=== PATIENT | male | born 1980 | race Caucasian/White ===

== ENCOUNTER 2024-01-20 08:56 | Emergency (ER) | payer OTHER, SELFPAY ==
[2024-01-20 09:06] VITALS: BP 155/97; PULSE 102; RESP 16; TEMP 36.4; O2SAT 100
--- NOTE | 2024-01-20 09:16 | ED.SKABFB ---
HPI - Skin/Abscess/Foreign Bdy General Chief complaint: Skin/Abscess/Foreign Body Stated complaint: poison plant rash Time Seen by Provider: 01/20/24 09:17 Source: patient and RN notes reviewed Mode of arrival: ambulatory Limitations: no limitations History of Present Illness HPI narrative: 43-year-old male presents with concern of for generalized itchy rash. Reports the rash started after he was clearing brush last week. Reports he did a telehealth visit and was prescribed a Medrol Dosepak. Reports he finished a yesterday and has had no relief of his rash. Reports he has used some [id number] poison carey treatment without relief. Reports he has taken Benadryl without relief. Denies swollen lips, swollen tongue, trouble breathing. MD complaint: rash Related Data Allergies Allergy/AdvReac Type Severity Reaction Status Date / Time No Known Allergies Allergy Mild Verified 01/20/24 09:01 Review of Systems Review of Systems: CONSTITUTIONAL: Denies malaise, chills, sweats, or fever. EYES: Denies redness, or discharge. ENT: Denies rhinorrhea, congestion, swollen lips, swollen tongue CARDIOVASCULAR: Denies chest pain, palpitations, or edema. RESPIRATORY: Denies cough or dyspnea. GASTROINTESTINAL: Denies abdominal pain, nausea, vomiting SKIN: Reports generalized itchy rash MUSCULOSKELETAL: Denies joint pain or myalgia. NEUROLOGIC: Denies headache. All systems reviewed & are unremarkable except as noted in HPI and below PMFSH Comments At time of signature, agree with nursing past medical, surgical, social and family history. There is no relevant family history pertinent to the presenting complaint Exam Narrative: GENERAL: Well-appearing, well-nourished, and in no acute distress. HEAD: Normocephalic, atraumatic. EYES: PERRLA, conjunctivae clear, and EOMI. ENT: Mucous membranes moist. Oropharynx without edema, erythema or lesions. NECK: Supple. No lymphadenopathy CHEST: Clear to auscultation. No respiratory distress. HEART: Regular rate and rhythm. SKIN: Warm, dry. Slightly raised patches of erythema, some scattered papules noted to generalized bilateral upper and lower extremities, torso NEURO: Alert and oriented x3. PSYCH: Normal mood and affect Course Course Emergency Course: Patient is aware of diagnosis, understands and agrees to treatment plan. Anticipatory guidance given. Patient agrees to follow-up as directed and is aware of reasons to seek care at the emergency department. Portions of this record may have been created with voice recognition software Level of Care: Express Care Visit Vital Signs Vital signs: Vital Signs Temperature 97.6 F 01/20/24 09:06 Pulse Rate 102 H 01/20/24 09:06 Respiratory Rate 16 01/20/24 09:06 Blood Pressure 155/97 H 01/20/24 09:06 Pulse Oximetry 100 01/20/24 09:06 Oxygen Delivery Room Air 01/20/24 09:06 Temperature 97.6 F 01/20/24 09:06 Pulse Rate 102 H 01/20/24 09:06 Respiratory Rate 16 01/20/24 09:06 Blood Pressure 155/97 H 01/20/24 09:06 Pulse Oximetry 100 01/20/24 09:06 Oxygen Delivery Room Air 01/20/24 09:06 Reviewed. MDM - Skin/Abscess/Foreign Bdy MDM Narrative Medical decision making narrative: Does not appear at this time to be erythema multiforme, bullous, SJS, TEN; no evidence at this time to suggest RMSF, endocarditis or Lyme disease; patient looks well, nontoxic and is tolerating oral intake; no neurologic signs or symptoms; no headache, photophobia or neck pain; afebrile; appropriate for initial outpatient treatment; discussed the importance of follow-up, patient agrees; question, viral exanthema, contact dermatitis, allergic dermatitis, eczema, urticaria, [ xx ]. No soft palate or uvula edema, no tongue, lip edema or other mucosal involvement, no respiratory compromise, no stridor, no wheezing, no wheezing, no history of syncope, no hypotension, no nausea, vomiting, or diarrhea. Instructed patient to go to nearest
[2024-01-20] MEDS: methylPREDNISolone SOD SUCC 125 MG VIAL IM (09:29)
== END 2024-01-20 09:35 | disposition home or self-care (01) ==
PROVIDERS: Emergency Provider Nurse Practitioner; Referring Provider Emergency Medicine
DX: L25.9 Unspecified contact dermatitis, unspecified cause (principal)
CPT/HCPCS: 96372; 99203; G0463; J2919

== ENCOUNTER 2024-04-08 12:05 | Emergency (ER) | payer OTHER, SELFPAY ==
--- NOTE | ~2024-04-08 | XR_ITS ---
EXAMINATION: XR chest 2V DATE: 04/08/2024 12:30 INDICATION: Chronic cough. TECHNIQUE: Frontal and lateral views of the chest were obtained. COMPARISON: None. FINDINGS: There is no pneumonia, pleural effusion, or pneumothorax. The heart size is normal. IMPRESSION: 1. No acute cardiopulmonary disease. Reviewed, dictated and finalized at location A. [facility] [employer]
--- NOTE | 2024-04-08 12:08 | ED.URI ---
HPI - URI/Sore Throat General Chief Complaint: Upper Respiratory Infection Stated Complaint: cough Time Seen by Provider: 04/08/24 12:28 Source: patient and RN notes reviewed Mode of arrival: ambulatory Limitations: no limitations History of Present Illness HPI Narrative: 43-year-old male presents with concern for chronic cough. Reports cough is worse when is lying down. He reports he has had a cough for 5 months. He denies any shortness of breath or wheezing. Denies any history of problems with his lungs. He denies any history of heart problems. Denies any bilateral lower extremity edema. He denies heartburn. He is not a smoker or a vapor. MD elicited complaint: cough Related Data Home Medications Medication Instructions Recorded Confirmed No Home Medications 04/08/24 04/08/24 Allergies Allergy/AdvReac Type Severity Reaction Status Date / Time No Known Allergies Allergy Mild Verified 04/08/24 12:08 Review of Systems Review of Systems: CONSTITUTIONAL: Denies malaise, chills, sweats, or fever. EYES: Denies visual changes, redness, or discharge. ENT: Denies rhinorrhea, congestion, sinus pain, otalgia and sore throat. CARDIOVASCULAR: Denies chest pain, palpitations, or edema. RESPIRATORY: Reports chronic cough. Denies dyspnea. GASTROINTESTINAL: Denies abdominal pain, nausea, vomiting, diarrhea SKIN: Denies rash or itching. MUSCULOSKELETAL: Denies myalgia. NEUROLOGIC: Denies headache. All systems reviewed & are unremarkable except as noted in HPI and below PMFSH Comments At time of signature, agree with nursing past medical, surgical, social and family history. There is no relevant family history pertinent to the presenting complaint Exam Narrative: GENERAL: Well-appearing, well-nourished, and in no acute distress. HEAD: Normocephalic EYES: PERRLA, conjunctivae clear ENT: Nares clear, no discharge. Mucous membranes moist. TM pearly hoff with sharp light reflex bilaterally; no tragal tenderness. Oropharynx not erythematous without lesions. Tonsils not enlarged and without exudate, no drooling, no hoarseness, no trismus, uvula midline. NECK: Supple. No lymphadenopathy CHEST: Clear to auscultation, breath sounds equal. No wheezing, rhonchi, rales, or stridor. No respiratory distress, speaks in full sentences. HEART: Regular rate and rhythm. No murmur heard. SKIN: Warm, dry, no rash. NEURO: Alert and oriented x3. PSYCH: Normal mood and affect Course Course Emergency Course: Patient is aware of diagnosis, understands and agrees to treatment plan. Anticipatory guidance given. Patient agrees to follow-up as directed and is aware of reasons to seek care at the emergency department. Portions of this record may have been created with voice recognition software Level of Care: Express Care Visit Vital Signs Vital signs: Reviewed. MDM - URI/Sore Throat MDM Narrative Medical decision making narrative: Differential diagnosis considered: Freitas virus, strep pharyngitis, allergic rhinitis, upper respiratory tract infection, sinusitis, rhinosinusitis, nasopharyngitis. viral pharyngitis, otitis media, otitis externa, pneumonia, bronchitis, viral cough syndrome, viral syndrome, and influenza. Exam findings show no acute concerns or changes; patient is non-toxic appearing and is in no distress. Patient is appropriate for outpatient treatment and follow-up. Lab Data Attestation: I reviewed the patient's lab results. Critical Care Time Critical Care Time Critical Care Time: No Discharge Plan Discharge Clinical Impression: Chronic cough Patient Disposition: Home, Self-Care Condition: Stable Instructions: Chronic Cough (ED) Additional Instructions: Your chest x-ray looks normal. Please follow-up with your primary care doctor for further evaluation. You may consider taking Nexium [id number] daily for 2 weeks to see if this may help your chronic cough. If you have any urgent concerns such as shortness of breath or chest pain please go to the emergency room Prescriptions: No Action No Home Medications Follow-up/Referrals: UNKNOWN,DOCTOR [Non-Staff] - Time of Disposition: 12:40
[2024-04-08 12:13] VITALS: BP 160/101; PULSE 97; RESP 18; TEMP 37.1; O2SAT 98
== END 2024-04-08 12:43 | disposition home or self-care (01) ==
PROVIDERS: Emergency Provider Nurse Practitioner
DX: R05.3 Chronic cough (principal); Z86.16 Personal history of COVID-19
CPT/HCPCS: 71046; 99213; G0463

== ENCOUNTER 2024-09-30 08:18 | Emergency (ER) | payer OTHER, SELFPAY ==
--- OUTSIDE RECORDS SUMMARY | 2024-09-30 08:21 | XMS_ITS | Clinical Summary ---
Author Organization [facility] Address [address] [place] [address] Care Team Providers Care Service Plumber Name Role Phone Unavailable Primary Care Provider Unavailabl e Social History Tobacco Use Types Packs/Day Years Used Date Smoking Tobacco: Never Assessed Sex and Gender Information Value Date Recorded Sex Assigned at Not on file Legal Sex Male 7:04 PM CDT Gender Identity Not on file Sexual Orientation Not on file Plan of Treatment Health Maintenance Due Date Last Done Comments Colorectal Cancer Screening Colonoscopy (10 Years) 1978 Annual Physical 1981 Hepatitis C 1996 DTaP, Tdap and Td Vaccines ( 1 - Tdap) 1997 Hepatitis B Vaccines (1 of 3 - 19+ 3-dose series) 1997 COVID-19 Vaccine (2023-2 5 season) 2024 HPV Vaccines Aged Out No longer eligi ble based on patient's age to complete this topic Meningococcal B Vaccine Aged Out No l onger eligible based on patient's age to complete this topic Meningococcal Vaccine Aged Out No renetta evelin eligible based on patient's age to complete this topic Pneumococcal Vaccine: Pediat rics (0 to 5 Years) and At-Risk Patients (6 to 49 Years) Aged Out No longer eligible b ased on patient's age to complete this topic RSV Immunizations Under 20 Months Aged Out No longer eligible based on patient's age to complete this topic
--- OUTSIDE RECORDS SUMMARY | 2024-09-30 08:22 | XMS_ITS | Data Portability ---
Author Organization [place] [facility] [employer], Main Office Address [address] [place] [address] Assessment No assessment recorded. Plan of Treatment Reminders Order Date Submit Date Provider Last Modified By Organization Details Last Modified Time Details Appointments Physical/ Annual Wellness 30 2024 09:30A Steve Troy NP Not available Not available Not available Lab vitamin D, 25-hydrox y, total, serum 2023 024 [email or web address] [facility], [address], [place], [address], 05/10/2024 08:15:22 lipid panel, serum 2023 024 [email or web address] [facility], [address], [place], [address], 05/16/2024 08:19:19 CBC w/ auto diff 2023 024 [facility], [address], [place], [address], 05/10/2024 08:15:22 BMP, serum or plasma 2023 024 [email or web address] [facility], [address], [place], [address], 05/16/2024 08:19:19 TSH, serum or plasma 2023 024 [email or web address] [facility], [address], [place], [address], 05/10/2024 08:15:22 testoster one, free + total, serum 2023 024 [email or web address] [facility], [address], [address], [place], [address], 05/10/2024 08:15:22 iron + TIBC + ferritin, serum 2023 024 [email or web address] [id number] [facility], [address], [address], [place], [address], 05/10/2024 08:15:22 vitamin B12 + folate, serum or blood 2023 024 [email or web address] [facility], [address], [address], [place], [address], 05/10/2024 08:15:23 vitamin D, 25-hydrox y, total, serum 2022 023 CARROLL Not available 05/09/2023 09:28:25 lipid panel, serum 2022 023 CARROLL Not available 05/09/2023 09:28:21 CBC w/ auto diff 2022 023 CARROLL Not available 05/09/2023 09:28:23 BMP, serum or plasma 2022 023 CARROLL Not available 05/09/2023 09:28:22 Referral gastroent erologist referral - Please call patient to schedule an appointme nt. Thank you. 2023 024 [email or web address] Timothy Shaw MD, [address], [place], [address], 06/01/2024 08:52:15 Procedures None recorded. Surgeries None recorded. Imaging None recorded. Medication Orders None recorded. Patient TargetsNo targets recorded. Patient Instructions Encounter Date Encounter Id Patient Instructions Last Modified By Organization Details Last Modified Time 05/03/2024 [id number] gastroesophageal reflux disease (GERD): care instructions [email or web address] Not available 05/04/2024 09:12:44 Reason for Referral Decatizer Referral for Screening for malignant neoplasm of colon Please call patient to schedule an appointment. Thank you. Referring Physician: Deonna Troy, Family Medicine, Encounter Date: 05/03/2024 Results Created Date Observation Date Name Description Value Unit Range Abnormal Flag Note LastModifiedBy Organization Detail LastModifiedTime 04/30/20 22 05/01/2022 VITAM IN D,25- OH,TO JOELLEN,I A vitamin D,25-oh,tota l,ia 29 NG/mL 30-100 low Vitam in D Statu s 25-OH Vitam in D: Defic iency : <20 ng/mL Insuf ficie ncy: 20 - 29 ng/mL Optim al: > or = 30 ng/mL For 25-OH Vitam in D testi ng on patie nts on D2-lancaster pplem entat ion and patie nts for whom quant itati on of D2 and D3 fract ions is requi red, the [facility] Assur eD(TM ) 25-OH VIT D, (D2,D 3), LC/MS /MS is recom azar d: order code 11174 (timothy ents >2yrs ). See Note 1 Note 1 For addit ional infor melissa rob refer to http: //lenard Tran stDia gnost ics.c om/fa q/FAQ 199 (This link is being provi ded for infor marlon brizuela/ car schuster purpo ses only. ) Not Available [facility] [address] [place], [address], 05/01/2022 06:50:01 04/30/20 22 05/01/2022 BASIC METAB OLIC PANEL glucose 82 mg/dL 65-99 normal Fasti ng refer ence inter deepali Not Available [facility] [address] [place], [address], 05/01/2022 06:50:00 04/30/20 22 05/01/2022 BASIC METAB OLIC PANEL urea nitrogen (BUN) 15 mg/dL 7-25 normal Not Available [address] [address] [place], [address], 05/01/2022 06:50:00 04/30/20 22 05/01/2022 BASIC METAB OLIC PANEL creatinine 1.03 mg/dL 0.60-1 .29 normal Not Available [address] [place], [address], 05/01/2022 06:50:00 04/30/20 22 05/01/2022 BASIC METAB OLIC PANEL eGFR 92 mL/mi n/1.7 3m2 > or = 60 normal The eGFR is based on the CKD-E PI 2020 equat ion. To calcu late the new eGFR from a previ ous Creat inine or Cysta tin C resul t, go to https ://leon romano.teresita hoover.o kayla/sharee mcintosh s/ kdoqi /gfr% 5Fcal culat or Not Available [address] [address] [place], [address], 05/01/2022 06:50:00 04/30/20 22 05/01/2022 BASIC METAB OLIC PANEL BUN/creatini ne ratio not applic able (calc ) 6-22 Not Available [address] [place], [address], 05/01/2022 06:50:00 04/30/20 22 05/01/2022 BASIC METAB OLIC PANEL sodium 138 mmol/ L 135-14 6 normal Not Available [address] [address] [place], [address], 05/01/2022 06:50:00 04/30/20 22 05/01/2022 BASIC METAB OLIC PANEL potassium 5.1 mmol/ L 3.5-5. 3 normal Not Available [address] [address] [place], [address], 05/01/2022 06:50:00 04/30/20 22 05/01/2022 BASIC METAB OLIC PANEL chloride 103 mmol/ L 98-110 normal Not Available [address], [address], 05/01/2022 06:50:00 04/30/20 22 05/01/2022 BASIC METAB OLIC PANEL carbon dioxide 30 mmol/ L 20-32 normal Not Available [address], [address], 05/01/2022 06:50:00 04/30/20 22 05/01/2022 BASIC METAB OLIC PANEL calcium 9.8 mg/dL 8.6-10 .3 normal Not Available [address], [address], 05/01/2022 06:50:00 04/30/20 22 05/01/2022 LIPID PANEL , STAND DAVID cholesterol, total 127 mg/dL <200 normal Not Available [address], [address], 05/01/2022 06:50:00 04/30/20 22 05/01/2022 LIPID PANEL , STAND DAVID HDL cholesterol 31 mg/dL > or = 40 low Not Available [address], [address], 05/01/2022 06:50:00 04/30/20 22 05/01/2022 LIPID PANEL , STAND DAVID triglyceride s 115 mg/dL <150 normal Not Available [address], [address], 05/01/2022 06:50:00 04/30/2005/01/2022 LIPID PANEL , STAND DAVID LDL-choleste rol 76 mg/dL _(leola c) normal Refer ence range : <100 Brandon able range <100 mg/dL for prima ry preve ntion ; <70 mg/dL for patie nts with CHD or diabe tic patie nts with > or = 2 CHD risk facto rs. LDL-C is now calcu lated using the Nat n-Hop kins calcu learory n, which is a valid ated novel igoro dayday leyva than the Fried papo equat ion in the estim ation of LDL-C . Nat pringle SS et al. CIERRA. 2013; 310(1 9): 2061- 2068 (http ://ed ucati on.Qu leonardVisicon Technologies. com/f aq/FA Q164) Not Available [facility] [address] [address] [place], [address], 05/01/2022 06:50:00 04/30/20 22 05/01/2022 LIPID PANEL , STAND DAVID chol/HDLC ratio 4.1 (calc ) <5.0 normal Not Available [address] [address] [address], [place], [address], 05/01/2022 06:50:00 04/30/20 22 05/01/2022 LIPID PANEL , STAND DAVID non HDL cholesterol 96 mg/dL _(leola c) <130 normal For patie nts with diabe christina plus 1 major ASCVD risk facto r, treat ing to a non-H DL-C goal of <100 mg/dL (LDL- C of <70 mg/dL ) is lauren gross optio n. Not Available [facility] [address] [address] [place], [address], 05/01/2022 06:50:00 05/08/20 23 05/09/2023 LIPID PANEL , STAND DAVID cholesterol, total 105 mg/dL <200 normal Not Available [facility] [address] [address] [place], [address], 05/09/2023 09:28:21 05/08/20 23 05/09/2023 LIPID PANEL , STAND DAVID HDL cholesterol 32 mg/dL > or = 40 low Not Available [facility] [address] [address] [place], [address], 05/09/2023 09:28:21 05/08/20 23 05/09/2023 LIPID PANEL , STAND DAVID triglyceride s 147 mg/dL <150 normal Not Available [facility] [address] [place] [address], [address], 05/09/2023 09:28:21 05/08/20 23 05/09/2023 LIPID PANEL , STAND DAVID LDL-choleste rol 50 mg/dL _(leola c) normal Refer ence range : <100 Brandon able range <100 mg/dL for prima ry preve ntion ; <70 mg/dL for patie nts with CHD or diabe tic patie nts with > or = 2 CHD risk facto rs. LDL-C is now calcu lated using the Nat n-Hop kins calcu humberto n, which is a valid ated novel metho d provi ding [place] r accur acy than the Fried papo equat ion in the estim ation of LDL-C . Nat pringle SS et al. CIERRA. 2013; 310(1 9): 2061- 2068 (http ://ed ucati on.Qu estVisicon Technologies. Veteran [employer]fts/f aq/FA Q164) Not Available [address] [address] [place], [address], 05/09/2023 09:28:21 05/08/20 23 05/09/2023 LIPID PANEL , STAND DAVID chol/HDLC ratio 3.3 (calc ) <5.0 normal Not Available [facility] [address] [place], [address], 05/09/2023 09:28:21 05/08/20 23 05/09/2023 LIPID PANEL , STAND DAVID non HDL cholesterol 73 mg/dL _(leola c) <130 normal For patie nts with diabe christina plus 1 major ASCVD risk facto r, treat ing to a non-H DL-C goal of <100 mg/dL (LDL- C of <70 mg/dL ) is consi dered a thera peuti c optio n. Not Available [facility] [address] [place], [address], 05/09/2023 09:28:21 05/08/20 23 05/09/2023 BASIC METAB OLIC PANEL glucose 87 mg/dL 65-99 normal Fasti ng refer ence inter deepali Not Available [address] [address] [place], [address], 05/09/2023 09:28:22 05/08/20 23 05/09/2023 BASIC METAB OLIC PANEL urea nitrogen (BUN) 11 mg/dL 7-25 normal Not Available [address], [address], 05/09/2023 09:28:22 05/08/20 23 05/09/2023 BASIC METAB OLIC PANEL creatinine 0.97 mg/dL 0.60-1 .29 normal Not Available [address], [address], 05/09/2023 09:28:22 05/08/20 23 05/09/2023 BASIC METAB OLIC PANEL eGFR 99 mL/mi n/1.7 3m2 > or = 60 normal Not Available [address], [address], 05/09/2023 09:28:22 05/08/20 23 05/09/2023 BASIC METAB OLIC PANEL BUN/creatini ne ratio SEE NOTE: (calc ) 6-22 Not Repor casper: BUN and Creat inine are withi n refer ence range . Not Available [address], [address], 05/09/2023 09:28:22 05/08/20 23 05/09/2023 BASIC METAB OLIC PANEL sodium 138 mmol/ L 135-14 6 normal Not Available [address] [address] [place], [address], 05/09/2023 09:28:22 05/08/20 23 05/09/2023 BASIC METAB OLIC PANEL potassium 4.5 mmol/ L 3.5-5. 3 normal Not Available [address], [address], 05/09/2023 09:28:22 05/08/20 23 05/09/2023 BASIC METAB OLIC PANEL chloride 102 mmol/ L 98-110 normal Not Available [address], [address], 05/09/2023 09:28:22 05/08/20 23 05/09/2023 BASIC METAB OLIC PANEL carbon dioxide 30 mmol/ L 20-32 normal Not Available [address], [address], 05/09/2023 09:28:22 05/08/20 23 05/09/2023 BASIC METAB OLIC PANEL calcium 9.2 mg/dL 8.6-10 .3 normal Not Available [address], [address], 05/09/2023 09:28:22 05/08/20 23 05/09/2023 CBC (INCL UDES DIFF/ PLT) white blood cell count 14.0 thous and/u L 3.8-10 .8 high Not Available [address], [address], 05/09/2023 09:28:23 05/08/20 23 05/09/2023 CBC (INCL UDES DIFF/ PLT) red blood cell count 3.58 eduarda on/uL 4.20-5 .80 low Not Available [address], [address], 05/09/2023 09:28:23 05/08/20 23 05/09/2023 CBC (INCL UDES DIFF/ PLT) hemoglobin 11.7 g/dL 13.2-1 7.1 low Not Available [facility] [address], [address], 05/09/2023 09:28:23 05/08/20 23 05/09/2023 CBC (INCL UDES DIFF/ PLT) hematocrit 35.1 % 38.5-5 0.0 low Not Available [address], [address], 05/09/2023 09:28:23 05/08/20 23 05/09/2023 CBC (INCL UDES DIFF/ PLT) MCV 98.0 fL 80.0-1 00.0 normal Not Available [address], [address], 05/09/2023 09:28:23 05/08/2005/09/2023 CBC (INCL UDES DIFF/ PLT) MCH 32.7 pg 27.0-3 3.0 normal Not Available [address], [address], 05/09/2023 09:28:23 05/08/20 23 05/09/2023 CBC (INCL UDES DIFF/ PLT) MCHC 33.3 g/dL 32.0-3 6.0 normal Not Available [address], [address], 05/09/2023 09:28:23 05/08/20 23 05/09/2023 CBC (INCL UDES DIFF/ PLT) RDW 15.9 % 11.0-1 5.0 high Not Available [address], [address], 05/09/2023 09:28:23 05/08/20 23 05/09/2023 CBC (INCL UDES DIFF/ PLT) platelet count 461 thous and/u L 140-40 0 high Not Available [address], [address], 05/09/2023 09:28:23 05/08/20 23 05/09/2023 CBC (INCL UDES DIFF/ PLT) MPV 9.6 fL 7.5-12 .5 normal Not Available [address], [address], 05/09/2023 09:28:23 05/08/20 23 05/09/2023 DIFFBRIAN BACH absolute neutrophils 76215 cells /uL 1500-7 800 high Not Available [address], [address], 05/09/2023 09:28:24 05/08/20 23 05/09/2023 DIFFE ABRIL AL, MIESHAA L absolute metamyelocyt es 294 cells /uL 0 high Not Available [address], [address], 05/09/2023 09:28:24 05/08/20 23 05/09/2023 DIFFE ABRIL ALMIESHAA L absolute myelocytes 140 cells /uL 0 high Not Available [address], [address], 05/09/2023 09:28:24 05/08/20 23 05/09/2023 DIFFPatrick SAMUELS ALMIESHAA L absolute lymphocytes 1008 cells /uL 850-39 00 normal Not Available [address], [address], 05/09/2023 09:28:24 05/08/20 23 05/09/2023 DIFFPatrick SAMUELS ALMIESHAA L absolute monocytes 294 cells /uL 200-95 0 normal Not Available [address], [address], 05/09/2023 09:28:24 05/08/20 23 05/09/2023 DIFFE ABRIL ALMIESHAA L absolute eosinophils 434 cells /uL 15-500 normal Not Available [address], [address], 05/09/2023 09:28:24 05/08/20 23 05/09/2023 DIFFE RENTI AL, MANUA L absolute basophils 434 cells /uL 0-200 high Not Available [facility] [address], [address], 05/09/2023 09:28:24 05/08/20 23 05/09/2023 DIFFE RENTI AL, MANUA L neutrophils 81.4 % normal Not Available [facility] [address], [address], 05/09/2023 09:28:24 05/08/20 23 05/09/2023 DIFFE RENTI AL, MANUA L metamyelocyt es 2.1 % high Not Available [facility] [address], [address], 05/09/2023 09:28:24 05/08/20 23 05/09/2023 DIFFE RENTI AL, MANUA L myelocytes 1.0 % high Not Available [facility] [address], [address], 05/09/2023 09:28:24 05/08/20 23 05/09/2023 DIFFE RENTI AL, MANUA L lymphocytes 7.2 % normal Not Available [facility] [address], [address], 05/09/2023 09:28:24 05/08/20 23 05/09/2023 DIFFE RENTI AL, MANUA L monocytes 2.1 % normal Not Available [facility] [address], [address], 05/09/2023 09:28:24 05/08/20 23 05/09/2023 DIFFE RENTI AL, MANUA L eosinophils 3.1 % normal Not Available [facility] [address], [address], 05/09/2023 09:28:24 05/08/20 23 05/09/2023 DIFFE RENTI AL, BRIAN L basophils 3.1 % normal Not Available [facility] [address] [address] [place], [address], 05/09/2023 09:28:24 05/08/20 23 05/09/2023 DIFFE RENTI ALBRIAN L note Altho ugh an auto mated CBC was order ed, our instr ument ation detec casper an abnor malit y on your patie nt's speci men requi ring us to perfo rm a brian l revie w. Not Available [facility] [address] [address] [place], [address], 05/09/2023 09:28:24 05/08/2005/09/2023 VITAM IN D,25- OH,TO JOELLEN,I A vitamin D,25-oh,tota l,ia 31 NG/mL 30-100 normal Vitam in D Statu s 25-OH Vitam in D: Defic iency : <20 ng/mL Insuf ficie ncy: 20 - 29 ng/mL Optim al: > or = 30 ng/mL For 25-OH Vitam in D testi ng on patie nts on D2-l[place]aster pplem entat ion and patie nts for whom quant itati on of D2 and D3 fract ions is requi red, the Quest Assur eD(TM ) 25-OH VIT D, (D2,D 3), LC/MS /MS is recom azar d: order code 73379 (timothy ents >2yrs ). See Note 1 Note 1 For addit ional infor melissa rob refer to http: //leanrd pringle.Que stDia gnost ics.c om/fa q/FAQ 199 (This link is being provi ded for infor marlon brizuela/ car spiveyo ses only. ) Not Available [facility] [address] [address] , [place], [address], 05/09/2023 09:28:25 06/30/19 24 07/01/2023 CBC (INCL UDES DIFF/ PLT) white blood cell count 14.2 thous and/u L 3.8-10 .8 high Not Available [facility] [address], [address], 07/01/2023 03:27:25 06/30/19 24 07/01/2023 CBC (INCL UDES DIFF/ PLT) red blood cell count 3.72 eduarda on/uL 4.20-5 .80 low Not Available [facility] [address], [address], 07/01/2023 03:27:25 06/30/19 24 07/01/2023 CBC (INCL UDES DIFF/ PLT) hemoglobin 11.7 g/dL 13.2-1 7.1 low Not Available [facility] [address], [address], 07/01/2023 03:27:25 06/30/19 24 07/01/2023 CBC (INCL UDES DIFF/ PLT) hematocrit 36.3 % 38.5-5 0.0 low Not Available [facility] [address], [address], 07/01/2023 03:27:25 06/30/19 24 07/01/2023 CBC (INCL UDES DIFF/ PLT) MCV 97.6 fL 80.0-1 00.0 normal Not Available [facility] [address], [address], 07/01/2023 03:27:25 06/30/19 24 07/01/2023 CBC (INCL UDES DIFF/ PLT) MCH 31.5 pg 27.0-3 3.0 normal Not Available [facility] [address], [address], 07/01/2023 03:27:25 06/30/19 24 07/01/2023 CBC (INCL UDES DIFF/ PLT) MCHC 32.2 g/dL 32.0-3 6.0 normal Not Available [facility] [address] [place], [address], 07/01/2023 03:27:25 06/30/19 24 07/01/2023 CBC (INCL UDES DIFF/ PLT) RDW 16.6 % 11.0-1 5.0 high Not Available [address], [address], 07/01/2023 03:27:25 06/30/19 24 07/01/2023 CBC (INCL UDES DIFF/ PLT) platelet count 501 thous and/u L 140-40 0 high Not Available [facility] [address], [address], 07/01/2023 03:27:25 06/30/19 24 07/01/2023 CBC (INCL UDES DIFF/ PLT) MPV 9.8 fL 7.5-12 .5 normal Not Available [address], [address], 07/01/2023 03:27:25 06/30/19 24 07/01/2023 CBC (INCL UDES DIFF/ PLT) absolute neutrophils 9940 cells /uL 1500-7 800 high Not Available [facility] [address], [address], 07/01/2023 03:27:25 06/30/19 24 07/01/2023 CBC (INCL UDES DIFF/ PLT) absolute band neutrophils 426 cells /uL 0-750 normal Not Available [facility] [address], [address], 07/01/2023 03:27:25 06/30/19 24 07/01/2023 CBC (INCL UDES DIFF/ PLT) absolute metamyelocyt es 284 cells /uL 0 high Not Available [facility] [address], [address], 07/01/2023 03:27:25 06/30/19 24 07/01/2023 CBC (INCL UDES DIFF/ PLT) absolute myelocytes 284 cells /uL 0 high Not Available [facility] [address], [address], 07/01/2023 03:27:25 06/30/19 24 07/01/2023 CBC (INCL UDES DIFF/ PLT) absolute lymphocytes 1704 cells /uL 850-39 00 normal Not Available [address], [address], 07/01/2023 03:27:25 06/30/19 24 07/01/2023 CBC (INCL UDES DIFF/ PLT) absolute monocytes 568 cells /uL 200-95 0 normal Not Available [facility] [address], [address], 07/01/2023 03:27:25 06/30/19 24 07/01/2023 CBC (INCL UDES DIFF/ PLT) absolute eosinophils 710 cells /uL 15-500 high Not Available [address], [address], 07/01/2023 03:27:25 06/30/19 24 07/01/2023 CBC (INCL UDES DIFF/ PLT) absolute basophils 284 cells /uL 0-200 high Not Available [facility] [address] [address] [place], [address], 07/01/2023 03:27:25 06/30/19 24 07/01/2023 CBC (INCL UDES DIFF/ PLT) neutrophils 70 % normal Not Available [address], [address], 07/01/2023 03:27:25 06/30/19 24 07/01/2023 CBC (INCL UDES DIFF/ PLT) band neutrophils 3 % normal Not Available [facility] [employer] [address] [address] [place], [address], 07/01/2023 03:27:25 06/30/19 24 07/01/2023 CBC (INCL UDES DIFF/ PLT) metamyelocyt es 2 % high Not Available [address], [address], 07/01/2023 03:27:25 06/30/19 24 07/01/2023 CBC (INCL UDES DIFF/ PLT) myelocytes 2 % high Not Available [facility] [address], [address], 07/01/2023 03:27:25 06/30/19 24 07/01/2023 CBC (INCL UDES DIFF/ PLT) lymphocytes 12 % normal Not Available [address], [address], 07/01/2023 03:27:25 06/30/19 24 07/01/2023 CBC (INCL UDES DIFF/ PLT) monocytes 4 % normal Not Available [address], [address], 07/01/2023 03:27:25 06/30/19 24 07/01/2023 CBC (INCL UDES DIFF/ PLT) eosinophils 5 % normal Not Available [address], [address], 07/01/2023 03:27:25 06/30/19 24 07/01/2023 CBC (INCL UDES DIFF/ PLT) basophils 2 % normal Not Available [address], [address], 07/01/2023 03:27:25 06/30/19 24 07/01/2023 CBC (INCL UDES DIFF/ PLT) comment(s) The smear has been manua lane bush wed and the manua mariely samuels al has been repor casper. Not Available [facility] [address], [address], 07/01/2023 03:27:25 Result Notes None recorded. Problems Name Problem SNOMED Code Status Onset Date Resolution Date Notes Provider Name and Address Organization Details Recorded Time Vitamin D deficiency 88304746 Active 2022 Anupama Santos MD [address], [place] [address], [place], [address], Versie Christian Companion [facility] [employer] [facility] 3 10:15:55 Leukocytosis 553640802 Active 2022 Anupama Santos MD [address], [place] [address], [place], [address], Versie Christian Companion [employer] [facility] 3 08:36:40 Fatigue 24762709 Active 2023 FATIMAH Riley [address], [place] [address], [place], [address], Versie Christian Companion [facility] [employer] 4 12:02:18 Chronic cough 73177090 Active 2023 FATIMAH Riley [address] [facility], [place] [address], [place], [address], Versie Christian Companion [employer] 4 12:12:00 Problem Notes None recorded. Procedures Surgical History Date Name Laterality Status Provider Name and Address Organization Details Recorded Time vasectomy completed Not Available [facility] 0 07/24/2022 01:24:12 Imaging Results None recorded. Procedure Notes None recorded. Medical Equipment None Reported. Allergies No known drug allergies Medications Name Sig Start Date Stop Date Status Note LastModified by Organization Details LastModified Time prednisone 10 mg tablet 05/03 completed Not Available Not Available Not Available prednisone 20 mg tablet 05/03 completed Not Available Not Available Not Available methylpredn isolone 4 mg tablets in a dose pack FOLLOW PACKAGE DIRECTION S 05/03 completed Not Available Not Available Not Available Vitals Date Recorded Body mass index (BMI) Body height Oxygen saturation Oxygen saturation in Arterial blood by Pulse oximetry Heart rate Body temperature Body weight Systolic blood pressure Diastolic blood pressure Provider Name and Address Organization Details Last Updated DateTime 2 28.3 kg/m2 182.88 cm 98 % 98 % 80 /min 97.8 [degF] 33714.8 1 g 118 mm[Hg] 78 mm[Hg] Not Available [facility] 3 01:24:44 Date Recorded Body height Body mass index (BMI) Body weight Body temperature Heart rate Oxygen saturation Oxygen saturation in Arterial blood by Pulse oximetry Systolic blood pressure Diastolic blood pressure Provider Name and Address Organization Details Last Updated DateTime 3 182.88 cm 28.8 kg/m2 42148.5 8 g 97.2 [degF] 76 /min 98 % 98 % 136 mm[Hg] 80 mm[Hg] Abdullahi Ramírez RN [facility] 3 10:06:58 Date Recorded Body weight Body temperature Heart rate Oxygen saturation Oxygen saturation in Arterial blood by Pulse oximetry Systolic blood pressure Diastolic blood pressure Provider Name and Address Organization Details Last Updated DateTime 4 908696. 61 g 97.9 [degF] 80 /min 97 % 97 % 184 mm[Hg] 92 mm[Hg] Abdullahi Ramírez RN [facility] 4 11:37:22 Social History Question Answer Notes LastModified by [facility] Details LastModified Time Tobacco Smoking Status Never Smoker Shell Mihir liang [facility] 04/28/2023 09:58:52 What Is Your Level Of Alcohol Consumption? Moderate [id number] Information not available 07/24/2022 What Is Your Level Of Caffeine Consumption? Heavy [id number] Information not available 07/24/2022 What Type Of Diet Are You Following? REGULAR [id number] Information not available 07/24/2022 What Was The Date Of Your Most Recent Tobacco Screening? 04/28/2023 [email or web address] Information not available 04/28/2023 What Is Your Relationship Status? [id number] Information not available 07/24/2022 Sex: Male Functional Status None recorded. Mental Status None recorded. Family History Relationship Description Onset Age of this Age Resolved Age Notes LastModified by Organization Details LastModified Time Maternal Grandfather Essential hypertension [id number] Not available 07/24/2022 01:24:14 Maternal Grandfather Coronary artery bypass graft [id number] Not available 07/24/2022 01:24:14 Brother Malignant neoplasm of lung 38 [id number] Not available 07/24/2022 01:24:14 Father Malignant neoplasm of lung [id number] Not available 07/24/2022 01:24:14 Medical History No medical history recorded. Past Encounters Encounter ID Performer Location Encounter Start Date Encounter Closed Date Diagnosis/Indication Diagnosis SNOMED-CT Code Diagnosis ICD10 Code Diagnosis Note [id number] Anupama Santos MD [facility] Primary Care [facility] [address] [facility] [address] [place] [address] 04/28/2022 00:00:00 05/22/2022 08:04:44 [id number] Anupama Santos MD [facility] Primary Care [facility] [address] [address] [place] [address] 04/28/2023 09:57:26 04/28/2023 10:44:23 Adult health examination 804909384 Z00.00 Z13.220 Z13.1 [facility] colon cancer screen age 43PSA age 43 Vitamin D deficiency [id number] E55.9 [id number] FATIMAH Riley [facility] Primary Care [facility] [address] [facility] [address] [place] [address] 05/03/2024 11:28:06 05/03/2024 13:51:54 Adult health examination 253211005 Z00.00 Z13.220 Z13.1 Discussed medication compliance and routine follow up.Discuss ed healthy diet and routine exercise.Casi rodrigeswed vaccine records and made recommenda tions as needed.Enc ouraged annual eye and dental exams, as well as twice yearly dental cleanings. Will check screening labs as listed below. Vitamin D deficiency [id number] E55.9 Fatigue [id number] R53.83 Will check labs as listed below. Chronic cough [id number] R 05.3 Patient is going to restart Nexium and take it daily and see if symptoms improve as it has been previously suggested that his chronic cough is GERD related.Di scussed avoiding spicy foods, carbs, and caffeine to help with symptoms of GERD. Difficulty sleeping [id number] Z72.820 Patient declines all treatment/ testing options at this time.Patie nt is going to take Benadryl like he did previously , will discontinu e Benadryl when stress and life calm-down to determine if this is stress related. Screening for malignant neoplasm of colon [id number] Z12.11 Will refer to GI as listed below. Health Concerns Section Related Observation LastModified by Organization Detai ls LastModified Time None Recorded Concern Status LastModified by Organization Details LastModified Time None Recorded Advance Directives Directive None Recorded Payers Encounter Date Sequence Insurance Name Policy Number Policy Hurst Covered Member ID Hurst Member ID Guarantor Name 04/28/2023 1 [facility] - [place] - DOS PRIOR TO 2024 (PPO) [id number] Tremayne Rodríguez [id number] PATEL Sunil Rodríguez 05/03/2024 1 [facility] [employer] [facility] - [place] - DOS PRIOR TO 2024 (PPO) [id number] Tremayne Rodríguez [id number] PATEL Sunil Rodríguez Notes Date Note Type Note Provider Name and Address Organization Details Recorded Time 04/28/2023 text/html Here for wellnes s exam, no questions or concerns Anupama Santos MD [address], [facility] [address], [place], [address], [facility] 04/29/2023 09:03:27 05/03/2024 text/html Patient is a 43 year old male that presents to the office for annual physical. Patient does not take any daily medications. Patient reports chronic dry cough since , went to urgent care and was advised to start Nexium due to possibility of acid reflux. Patient reports symptoms did improve while taking the Nexium however he stopped taking it because he doesn't like taking daily medications. Patient reports issues with insomnia, taking Benadryl to help him fall asleep however he stopped taking it so his body did not become dependent on it. Patient is getting about 5-6 hours of continuous sleep per night. Patient falls asleep easy but does not stay asleep, once he wakes up he is up for 3-4 hours. Thinks it could be related to stress due to working on house projects and never ending to-do lists. labs-ordered [id number] within the last 6 years FATIMAH Riley [address], [place], [address], [place] [facility] 05/04/2024 09:13:21
[2024-09-30 08:26] VITALS: BP 156/96; PULSE 80; RESP 17; TEMP 36.6; O2SAT 100
--- NOTE | 2024-09-30 08:27 | ED_ITS ---
HPI - Skin/Abscess/Foreign Bdy General Chief complaint: Skin/Abscess/Foreign Body Stated complaint: poison maria elena Time Seen by Provider: 09/30/24 08:30 Source: patient Mode of arrival: ambulatory Limitations: no limitations History of Present Illness HPI narrative: Neck was is a 44-year-old male patient presenting to the clinic today with complaints of possible poison maria elena to bilateral arms and left leg. He reports he was clearing out some brush on his property and got into some poison maria elena. States the rash is raised itchy. Rash been there for 2 days. Related Data Allergies Allergy/AdvReac Type Severity Reaction Status Date / Time No Known Allergies Allergy Mild Verified 09/30/24 08:30 Review of Systems Review of Systems: Pertinent positives per HPI. Patient denies any fever, chills, headache, visual changes, dizziness, cough, runny nose, sore throat, shortness of breath, chest pain, palpitations, nausea, vomiting, diarrhea, constipation, abdominal pain, or any urinary issues. PMFSH Comments At the time of my signature, I reviewed and agree with the nursing past medical, surgical, social, and family history. There is no relevant family history pertinent to the patient complaint. Exam Narrative: General: Well-developed, well nourished, in no apparent distress Head: Normocephalic, atraumatic. Cardio: Regular rate and rhythm, s1 and s2 normal, no murmur appreciated. Resp: Clear to auscultation bilaterally, no rhonchi, rales, wheezing or rubs. Integumentary: [place], warm, and dry, intact without lesion, red raised itchy blistery rash to bilateral forearms and left lower extremity. Course Course Emergency Course: Portions of this record may have been created with voice recognition software. Level of Care: Express Care Visit Vital Signs Vital signs: Vital Signs Temperature 36.6 C 09/30/24 08:26 Pulse Rate 80 09/30/24 08:26 Respiratory Rate 17 09/30/24 08:26 Blood Pressure 156/96 H 09/30/24 08:26 Pulse Oximetry 100 09/30/24 08:26 Oxygen Delivery Room Air 09/30/24 08:26 Temperature 36.6 C 09/30/24 08:26 Pulse Rate 80 09/30/24 08:26 Respiratory Rate 17 09/30/24 08:26 Blood Pressure 156/96 H 09/30/24 08:26 Pulse Oximetry 100 09/30/24 08:26 Oxygen Delivery Room Air 09/30/24 08:26 Vital signs reviewed MDM - Skin/Abscess/Foreign Bdy MDM Narrative Medical decision making narrative: At the time of visit patient is resting comfortably on the exam table. Patient appears to be nontoxic. Medications: Dexamethasone 10 mg IM given in the clinic today. Plan: I suspect patient has poison maria elena dermatitis. Prescription for prednisone 10 day taper and triamcinolone cream was sent to the pharmacy. Supportive measures were discussed with the patient and they voiced understanding discharge instructions and agrees to treatment plan. Return precautions reviewed Differential Diagnosis Differential diagnosis: Likely abscess of skin or subcutaneous tissue, viral exanthem, dermatophytosis, urticaria, herpes zoster, allergic reaction to drug, cellulitis, eczema, insect bites, impetigo and contact dermatitis Discharge Plan Discharge Clinical Impression: Allergic dermatitis due to poison maria elena Patient Disposition: Home Condition: Stable Instructions: Antibiotic Form, Poison Maria Elena (ED) Additional Instructions: Apply triamcinolone cream as directed Take prednisone as directed-start tomorrow 10/01/24 Avoid hot showers May apply calamine lotion to rash Avoid scratching as this can cause a secondary infection May take Benadryl 25-50mg every 6 hours as needed for itching. Follow up with your PCP in 3-5 days if symptoms persist or sooner if they worsen Go to the Emergency Room if symptoms worsen- fever, rash spreading with treatment, shortness of breath, tongue swelling, drooling, or chest pain Patient Language: Ukrainian Prescriptions: New triamcinolone acetonide 0.1 % cream 1 applic topical BID 7 Days Qty: 30 0RF prednisone 10 mg tablet 10 mg PO DAILY Qty: 30 0RF Rx Instructions: 60mg po daily on day 1, 40mg po daily on days 2-4, 30mg po daily on days 5-6, 20mg po daily on days 7-8, 10mg po daily on days 9-10 Follow-up/Referrals: PHYSICIAN,PUBLIC HEALTH TEACHER [Primary Care Provider] - Time of Disposition: 08:34 Quality NIHSS Nursing Documentation ED NIHSS nursing documentation: reviewed/agree
[2024-09-30] MEDS: dexAMETHasone SOD PHOS INJ 10 MG/ML 1 ML VIAL IM (08:36)
== END 2024-09-30 08:39 | disposition home or self-care (01) ==
PROVIDERS: Emergency Provider Nurse Practitioner Family
DX: L23.7 Allergic contact dermatitis due to plants, except food (principal); Z86.16 Personal history of COVID-19
CPT/HCPCS: 96372; 99213; G0463; J1100

== ENCOUNTER 2024-10-07 08:38 | Emergency (ER) | payer OTHER, SELFPAY ==
--- NOTE | 2024-10-07 08:41 | ED_ITS ---
HPI - Skin/Abscess/Foreign Bdy General Chief complaint: Skin/Abscess/Foreign Body Stated complaint: Skin/Abscess/Foreign Body Time Seen by Provider: 10/07/24 09:05 Source: patient, RN notes reviewed and old records reviewed Mode of arrival: ambulatory Limitations: no limitations History of Present Illness HPI narrative: 44-year-old male presents to the [facility] with a continued poison maria elena rash. Was seen 1 week ago. At that time received a shot of dexamethasone, sent home on 10 days of steroids. Patient strongly believes that what we prescribed him what he was given last time it was not the same thing, discussed with patient that I did reviewed the chart and medication was the same. Discussed adding [id number] products. Related Data Allergies Allergy/AdvReac Type Severity Reaction Status Date / Time No Known Allergies Allergy Mild Verified 10/07/24 08:50 Review of Systems Review of Systems: All systems reviewed & are unremarkable except as noted in HPI and below Constitutional: Constitutional: Reports no additional constitutional complaints ENT: Reports system reviewed and no additional complaints, except as documented Cardiovascular: Cardiovascular: Reports no additional cardiovascular complaints, Denies chest pain and Denies dyspnea Respiratory: Respiratory: Reports no additional respiratory complaints, Denies chest congestion, Denies cough and Denies dyspnea Musculoskeletal: Musculoskeletal: Reports no additional musculoskeletal complaints Integumentary/Breasts: Skin/Breast: Reports as per HPI PMFSH Comments At the time of my signature, I reviewed and agree with the nursing past medical, surgical, social, and family history. There is no relevant family history perti nent to the patient complaint. Exam Const: General: cooperative, healthy appearing, comfortable, no acute distress, well developed, alert and well nourished Nutritional Appearance: well nourished Orientation/consciousness: patient oriented x3 Limitations: no limitations HENMT: Head: normal to inspection Mouth: Yes Normal oral and palatal mucosa present, Yes lip normal, Yes tongue normal and Yes moist mucous membranes Eyes: General: appearance normal, both eyes and all related structures Alignment and Position: alignment normal Neck: Neck: normal visual inspection, full ROM, no lymphadenopathy and no meningeal signs Chest: Chest palpation & inspection: normal inspection of the chest Resp: Effort & Inspection: normal respiratory effort and able to speak in complete sentences Auscultation: clear to auscultation bilaterally, no crackles, no rales, no rhonchi and no wheezes Cardio: Rate: regular rate Skin: General skin exam: normal color and no rashes or lesions noted Rashes: rashes noted Neuro: General: patient oriented x3, gait normal, moves all extremities and no meningeal signs Cognition (Neuro): normal cognition Speech: normal speech Gait exam (Neuro): Normal gait present Extrem: General: normal to inspection, full ROM, capillary refill normal and normal gait Psych: Appearance: grossly normal and well kempt Mental Status: mental status grossly normal Speech and movement: Normal speech and movement present and Clear speech present Affect: normal affect Attitude: cooperative Course Course Level of Care: Express Care Visit Vital Signs Vital signs: Vital Signs Temperature 97.6 F 10/07/24 08:50 Pulse Rate 75 10/07/24 08:50 Respiratory Rate 17 10/07/24 08:50 Blood Pressure 150/93 H 10/07/24 08:50 Pulse Oximetry 98 10/07/24 08:50 Oxygen Delivery Room Air 10/07/24 08:50 Temperature 97.6 F 10/07/24 08:50 Pulse Rate 75 10/07/24 08:50 Respiratory Rate 17 10/07/24 08:50 Blood Pressure 150/93 H 10/07/24 08:50 Pulse Oximetry 98 10/07/24 08:50 Oxygen Delivery Room Air 10/07/24 08:50 Reviewed MDM - Skin/Abscess/Foreign Bdy MDM Narrative Medical decision making narrative: Patient sitting in exam room. Patient is nontoxic, vitals except blood pressure are stable. Blood pressure mildly elevated most likely due to patient being upset that the rash is not gone. No cellulitic changes noted. Patient is just concerned for the continued itching. Discussed hydrocortisone, Zyrtec, Pepcid and Benadryl Reviewed previous chart from December. Discussed with patient the only difference between medication then and medication now was he was not told to take 50 mg for 2 days. Otherwise medications were the same plus he did receive a shot of dexamethasone well in clinic. Discussed [id number]-yahuyad treatments. Discharge instructions reviewed with patient, as well as provided in writing per nursing staff. The instructions also include specific and strict return/GO TO THE ER as well as f/u information. All questions have been answered, and the patient deny any further questions with discharge and discharge plan. Some parts of this dictation were generated by voice recognition software and may contain typographical and/or grammatical inaccuracies. Differential Diagnosis Differential diagnosis: Likely abscess of skin or subcutaneous tissue, urticaria, insect bites and impetigo Critical Care Time Critical Care Time Critical Care Time: No Discharge Plan Discharge Clinical Impression: Allergic dermatitis due to poison maria elena Patient Disposition: Home Condition: Stable Instructions: Antibiotic Form, Poison Maria Elena (ED) Additional Instructions: The most important part of your care is follow up with Primary care provider. Take Benadryl 25-50 mg every 8 hours for itching Take Zyrtec every day x 14 days Take Pepcid 20mg daily for 14 days For the steroids take 20 mg now for 3 days, 10 mg for 3 days then stop Avoid hot showers, Take cool showers. Hot showers will make rashes worse Apply cool compresses every 2-3 hours for 15 minutes Go to the ER for new or worsening symptoms such as shortness of breath. Patient Language: Swiss Prescriptions: New prednisone 10 mg tablet 10 mg PO DAILY Qty: 6 0RF Rx Instructions: adding addition doses. * 20mg x 3 days, 10 mg x 3 days No Action triamcinolone acetonide 0.1 % cream 1 applic topical BID 7 Days Qty: 30 0RF prednisone 10 mg tablet 10 mg PO DAILY Qty: 30 0RF Rx Instructions: 60mg po daily on day 1, 40mg po daily on days 2-4, 30mg po daily on days 5-6, 20mg po daily on days 7-8, 10mg po daily on days 9-10 Follow-up/Referrals: Woodrow,Deonna Heredia [employer]ER [Primary Care Provider] - 3 Days ([facility] follow-up, blood pressure check, 150/93) Stand Alone Forms: Work/School Release IP Time of Disposition: 09:26
--- OUTSIDE RECORDS SUMMARY | 2024-10-07 08:46 | XMS_ITS | Data Portability ---
Author Organization [place] [facility], Main Office Address [address] [place] [address] Assessment No assessment recorded. Plan of Treatment Reminders Order Date Submit Date Provider Last Modified By Organization Details Last Modified Time Details Appointments Physical/ Annual Wellness 30 2024 09:30A Steve Troy NP Not available Not available Not available Lab vitamin D, 25-hydrox y, total, serum 2023 024 [email or web address] [facility], [address], [place], [address], 05/10/2024 08:15:22 lipid panel, serum 2023 024 [email or web address] [facility], [address], [place], [address], 05/16/2024 08:19:19 CBC w/ auto diff 2023 024 [email or web address] [facility], [address], [place], [address], 05/10/2024 08:15:22 BMP, serum or plasma 2023 024 [email or web address] [facility], [address], [place], [address], 05/16/2024 08:19:19 TSH, serum or plasma 2023 024 [email or web address] [facility], [address], [place], [address], 05/10/2024 08:15:22 testoster one, free + total, serum 2023 024 [email or web address] [facility], [address], [address], [place], [address], 05/10/2024 08:15:22 iron + TIBC + ferritin, serum 2023 024 [email or web address] [facility], [address], [address], [place], [address], 05/10/2024 08:15:22 vitamin B12 + folate, serum or blood 2023 024 [id number] [facility], [address], [address], [place], [address], 05/10/2024 08:15:23 vitamin D, 25-hydrox y, total, [...] 2023 024 [email or web address] Timothy Shaw MD, [address], [place], [address], 06/01/2024 08:52:15 Procedures None recorded. Surgeries None recorded. Imaging None recorded. Medication Orders None recorded. Patient TargetsNo targets recorded. 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 See Note 1 Note 1 For addit ional infor melissa rob refer to http: //lenard Tran stDia gnost ics.c om/fa q/FAQ 199 (This link is being provi ded for infor marlon brizuela/ car schuster purpo ses only. ) Not Available [facility] [address] [address] [place], [address], 05/01/2022 06:50:01 04/30/20 22 05/01/2022 BASIC METAB OLIC PANEL glucose 82 mg/dL 65-99 normal Fasti ng refer ence inter deepali Not Available [facility] [address] [place], [address], 05/01/2022 06:50:00 04/30/20 22 05/01/2022 BASIC METAB OLIC PANEL urea nitrogen (BUN) 15 mg/dL 7-25 normal Not Available [address] [address] [place], [address], 05/01/2022 06:50:00 04/30/20 22 05/01/2022 BASIC METAB OLIC PANEL creatinine 1.03 mg/dL 0.60-1 .29 normal Not Available [address] [place], [address], 05/01/2022 06:50:00 04/30/20 22 05/01/2022 BASIC METAB [...] kdoqi /gfr% 5Fcal culat or Not Available [address] [address] [place], [address], 05/01/2022 06:50:00 04/30/20 22 05/01/2022 BASIC METAB OLIC PANEL BUN/creatini ne ratio not applic able (calc ) 6-22 Not Available [address] [place], [address], 05/01/2022 06:50:00 04/30/20 22 05/01/2022 BASIC METAB OLIC PANEL sodium 138 mmol/ L 135-14 6 normal Not Available [address] [address] [place], [address], 05/01/2022 06:50:00 04/30/20 22 05/01/2022 BASIC METAB OLIC PANEL potassium 5.1 mmol/ L 3.5-5. 3 normal Not Available [facility] [address] [address] [place], [address], 05/01/2022 06:50:00 04/30/20 22 05/01/2022 BASIC METAB OLIC PANEL chloride 103 mmol/ L 98-110 normal Not Available [address], [address], 05/01/2022 06:50:00 04/30/20 22 05/01/2022 BASIC METAB OLIC PANEL carbon dioxide 30 mmol/ L 20-32 normal Not Available [address], [address], 05/01/2022 06:50:00 04/30/20 22 05/01/2022 BASIC METAB OLIC PANEL calcium 9.8 mg/dL 8.6-10 .3 normal Not Available [address], [address], 05/01/2022 06:50:00 04/30/20 22 05/01/2022 LIPID PANEL , STAND DAVID cholesterol, total 127 mg/dL <200 normal Not Available [address], [address], 05/01/2022 06:50:00 04/30/20 22 05/01/2022 LIPID PANEL , STAND DAVID HDL cholesterol 31 mg/dL > or = 40 low Not Available [address], [address], 05/01/2022 06:50:00 04/30/20 22 05/01/2022 LIPID PANEL , STAND DAVID triglyceride s 115 mg/dL <150 normal Not Available [address], [address], 05/01/2022 06:50:00 04/30/20 22 05/01/2022 LIPID PANEL , STAND DAVID LDL-choleste rol 76 mg/dL _(leola c) normal Refer ence range : <100 Brandon able range <100 mg/dL for prima ry preve ntion ; <70 mg/dL for patie nts with CHD or diabe tic patie nts with > or = 2 CHD risk facto rs. LDL-C is now calcu lated using the Nat n-Hop kins gurmeetu learory n, which is a valid ated novel nghia leyva than the Fried papo equat ion in the estim ation of LDL-C . Nat pringle SS et al. CIERRA. 2013; 310(1 9): 2061- 2068 (http ://ed ucati on.Qu leonardAgRobotics. com/f aq/FA Q164) Not Available [facility] [address] [address] [place], [address], 05/01/2022 06:50:00 04/30/20 22 05/01/2022 LIPID PANEL , STAND DAVID chol/HDLC ratio 4.1 (calc ) <5.0 normal Not Available [address] [address] [address], [place], [address], 05/01/2022 06:50:00 04/30/20 22 05/01/2022 LIPID PANEL , STAND DAVID non HDL cholesterol 96 mg/dL _(leola c) <130 normal For patie nts with diabe christina plus 1 major ASCVD risk facto r, treat ing to a non-H DL-C goal of <100 mg/dL (LDL- C of <70 mg/dL ) is lauren rousseauo n. Not Available [facility] [address] [address] [place], [address], 05/01/2022 06:50:00 05/08/20 23 05/09/2023 LIPID PANEL , STAND DAVID cholesterol, total 105 mg/dL <200 normal Not Available [facility] [address] [address] [place], [address], 05/09/2023 09:28:21 05/08/20 23 05/09/2023 LIPID PANEL , STAND DAVID HDL cholesterol 32 mg/dL > or = 40 low Not Available [facility] [address] [address] [place], [address], 05/09/2023 09:28:21 05/08/20 23 05/09/2023 LIPID PANEL , STAND DAVID triglyceride s 147 mg/dL <150 normal Not Available [facility] [address] [place] [address], [address], 05/09/2023 09:28:21 05/08/20 23 05/09/2023 LIPID PANEL [...] 9): 2061- 2068 (http ://ed ucati on.Qu leonardAgRobotics. com/f aq/FA Q164) Not Available [facility] [address] [place], [address], 05/09/2023 09:28:21 05/08/20 23 05/09/2023 LIPID PANEL , STAND DAVID chol/HDLC ratio 3.3 (calc ) <5.0 normal Not Available [facility] [address] [place], [address], 05/09/2023 09:28:21 05/08/20 23 05/09/2023 LIPID PANEL , STAND DAVID non HDL cholesterol 73 mg/dL _(leola c) <130 normal For patie nts with diabe christina plus 1 major ASCVD risk facto r, treat ing to a non-H DL-C goal of <100 mg/dL (LDL- C of <70 mg/dL ) is consi dered a thera peuti c optio n. Not Available [facility] [address] [place], [address], 05/09/2023 09:28:21 05/08/20 23 05/09/2023 BASIC METAB OLIC PANEL glucose 87 mg/dL 65-99 normal Fasti ng refer ence inter deepali Not Available [address] [address] [place], [address], 05/09/2023 09:28:22 05/08/20 23 05/09/2023 BASIC METAB OLIC PANEL urea nitrogen (BUN) 11 mg/dL 7-25 normal Not Available [address] [address] [place], [address], 05/09/2023 09:28:22 05/08/2005/09/2023 BASIC METAB OLIC PANEL creatinine 0.97 mg/dL 0.60-1 .29 normal Not Available [address], [address], 05/09/2023 09:28:22 05/08/20 23 05/09/2023 BASIC METAB OLIC PANEL eGFR 99 mL/mi n/1.7 3m2 > or = 60 normal Not Available [address], [address], 05/09/2023 09:28:22 05/08/20 23 05/09/2023 BASIC METAB OLIC PANEL BUN/creatini ne ratio SEE NOTE: (calc ) 6-22 Not Repor casper: BUN and Creat inine are withi n refer ence range . Not Available [address] [address] [place], [address], 05/09/2023 09:28:22 05/08/20 23 05/09/2023 BASIC METAB OLIC PANEL sodium 138 mmol/ L 135-14 6 normal Not Available [address] [address] [place], [address], 05/09/2023 09:28:22 05/08/20 23 05/09/2023 BASIC METAB OLIC PANEL potassium 4.5 mmol/ L 3.5-5. 3 normal Not Available [address], [address], 05/09/2023 09:28:22 05/08/20 23 05/09/2023 BASIC METAB OLIC PANEL chloride 102 mmol/ L 98-110 normal Not Available [address], [address], 05/09/2023 09:28:22 05/08/20 23 05/09/2023 BASIC METAB OLIC PANEL carbon dioxide 30 mmol/ L 20-32 normal Not Available [address], [address], 05/09/2023 09:28:22 05/08/20 23 05/09/2023 BASIC METAB OLIC PANEL calcium 9.2 mg/dL 8.6-10 .3 normal Not Available [address], [address], 05/09/2023 09:28:22 05/08/20 23 05/09/2023 CBC (INCL UDES DIFF/ PLT) white blood cell count 14.0 thous and/u L 3.8-10 .8 high Not Available [address], [address], 05/09/2023 09:28:23 05/08/20 23 05/09/2023 CBC (INCL UDES DIFF/ PLT) red blood cell count 3.58 eduarda on/uL 4.20-5 .80 low Not Available [address], [address], 05/09/2023 09:28:23 05/08/20 23 05/09/2023 CBC (INCL UDES DIFF/ PLT) hemoglobin 11.7 g/dL 13.2-1 7.1 low Not Available [facility] [address], [address], 05/09/2023 09:28:23 05/08/20 23 05/09/2023 CBC (INCL UDES DIFF/ PLT) hematocrit 35.1 % 38.5-5 0.0 low Not Available [address], [address], 05/09/2023 09:28:23 05/08/20 23 05/09/2023 CBC (INCL UDES DIFF/ PLT) MCV 98.0 fL 80.0-1 00.0 normal Not Available [address], [address], 05/09/2023 09:28:23 05/08/2005/09/2023 CBC (INCL UDES DIFF/ PLT) MCH 32.7 pg 27.0-3 3.0 normal Not Available [address], [address], 05/09/2023 09:28:23 05/08/20 23 05/09/2023 CBC (INCL UDES DIFF/ PLT) MCHC 33.3 g/dL 32.0-3 6.0 normal Not Available [address], [address], 05/09/2023 09:28:23 05/08/20 23 05/09/2023 CBC (INCL UDES DIFF/ PLT) RDW 15.9 % 11.0-1 5.0 high Not Available [address], [address], 05/09/2023 09:28:23 05/08/20 23 05/09/2023 CBC (INCL UDES DIFF/ PLT) platelet count 461 thous and/u L 140-40 0 high Not Available [address], [address], 05/09/2023 09:28:23 05/08/20 23 05/09/2023 CBC (INCL UDES DIFF/ PLT) MPV 9.6 fL 7.5-12 .5 normal Not Available [address], [address], 05/09/2023 09:28:23 05/08/20 23 05/09/2023 DIFFE ABRIL ALBRIAN absolute neutrophils 63702 cells /uL 1500-7 800 high Not Available [address], [address], 05/09/2023 09:28:24 05/08/20 23 05/09/2023 DIFFE RENLEONIDES AL, MIESHAA L absolute metamyelocyt es 294 cells /uL 0 high Not Available [address], [address], 05/09/2023 09:28:24 05/08/20 23 05/09/2023 DIFFE ABRIL ALMIESHAA L absolute myelocytes 140 cells /uL 0 high Not Available [address], [address], 05/09/2023 09:28:24 05/08/20 23 05/09/2023 DIFFE ABRIL ALMIESHAA L absolute lymphocytes 1008 cells /uL 850-39 00 normal Not Available [address], [address], 05/09/2023 09:28:24 05/08/20 23 05/09/2023 DIFFE ABRIL ALMIESHAA L absolute monocytes 294 cells /uL 200-95 0 normal Not Available [address], [address], 05/09/2023 09:28:24 05/08/20 23 05/09/2023 DIFFE ABRIL AL, MIESHAA L absolute eosinophils 434 cells /uL 15-500 normal Not Available [address], [address], 05/09/2023 09:28:24 05/08/20 23 05/09/2023 DIFFE RENTI AL, MANUA L absolute basophils 434 cells /uL 0-200 high Not Available [facility] [address], [address], 05/09/2023 09:28:24 05/08/20 23 05/09/2023 DIFFE RENTI AL, MANUA L neutrophils 81.4 % normal Not Available [facility] [address], [address], 05/09/2023 09:28:24 05/08/20 23 05/09/2023 DIFFE RENTI AL, MANUA L metamyelocyt es 2.1 % high Not Available [facility] [address], [address], 05/09/2023 09:28:24 05/08/20 23 05/09/2023 DIFFE RENTI AL, MANUA L myelocytes 1.0 % high Not Available [facility] [address], [address], 05/09/2023 09:28:24 05/08/20 23 05/09/2023 DIFFE RENTI AL, MANUA L lymphocytes 7.2 % normal Not Available [facility] [address], [address], 05/09/2023 09:28:24 05/08/20 23 05/09/2023 DIFFE RENTI AL, MANUA L monocytes 2.1 % normal Not Available [facility] [address], [address], 05/09/2023 09:28:24 05/08/20 23 05/09/2023 DIFFE RENTI AL, MANUA L eosinophils 3.1 % normal Not Available [facility] [address], [address], 05/09/2023 09:28:24 05/08/20 23 05/09/2023 DIFFE RENTI AL, BRIAN L basophils 3.1 % normal Not Available [facility] [address] [address] [place], [address], 05/09/2023 09:28:24 05/08/20 23 05/09/2023 DIFFE RENTI AL, MIESHAA L note Altho ugh an auto mated CBC was order ed, our instr ument ation detec casper an abnor malit y on your patie nt's speci men requi ring us to perfo rm a brian l revie w. Not Available [facility] [address] [address] [place], [address], 05/09/2023 09:28:24 05/08/2005/09/2023 VITAM IN D,25- [place],TO [...] /MS is recom azar d: order code [id number] (timothy ents >2yrs ). See Note 1 Note 1 For addit ional infor melissa rob refer to http: //lenard pringle.Aguilar stDia gnost ics.c om/fa q/FAQ 199 (This link is being provi ded for infor marlon brizuela/ car schuster purpo ses only. ) Not Available [facility] [address] [address] , [place], [address], 05/09/2023 09:28:25 06/30/19 24 07/01/2023 CBC (INCL UDES DIFF/ PLT) white blood cell count 14.2 thous and/u L 3.8-10 .8 high Not Available [facility] [address], [address], 07/01/2023 03:27:25 06/30/19 24 07/01/2023 CBC (INCL UDES DIFF/ PLT) red blood cell count 3.72 eduarda on/uL 4.20-5 .80 low Not Available [facility] [address], [address], 07/01/2023 03:27:25 06/30/19 24 07/01/2023 CBC (INCL UDES DIFF/ PLT) hemoglobin 11.7 g/dL 13.2-1 7.1 low Not Available [facility] [address], [address], 07/01/2023 03:27:25 06/30/19 24 07/01/2023 CBC (INCL UDES DIFF/ PLT) hematocrit 36.3 % 38.5-5 0.0 low Not Available [facility] [address], [address], 07/01/2023 03:27:25 06/30/19 24 07/01/2023 CBC (INCL UDES DIFF/ PLT) MCV 97.6 fL 80.0-1 00.0 normal Not Available [facility] [address], [address], 07/01/2023 03:27:25 06/30/19 24 07/01/2023 CBC (INCL UDES DIFF/ PLT) MCH 31.5 pg 27.0-3 3.0 normal Not Available [facility] [address], [address], 07/01/2023 03:27:25 06/30/19 24 07/01/2023 CBC (INCL UDES DIFF/ PLT) MCHC 32.2 g/dL 32.0-3 6.0 normal Not Available [facility] - [address], [address], 07/01/2023 03:27:25 06/30/19 24 07/01/2023 CBC (INCL UDES DIFF/ PLT) RDW 16.6 % 11.0-1 5.0 high Not Available [facility] [address], [address], 07/01/2023 03:27:25 06/30/19 24 07/01/2023 CBC (INCL UDES DIFF/ PLT) platelet count 501 thous and/u L 140-40 0 high Not Available [facility] [address], [address], 07/01/2023 03:27:25 06/30/19 24 07/01/2023 CBC (INCL UDES DIFF/ PLT) MPV 9.8 fL 7.5-12 .5 normal Not Available [facility] [address], [address], 07/01/2023 03:27:25 06/30/19 24 07/01/2023 CBC (INCL UDES DIFF/ PLT) absolute neutrophils 9940 cells /uL 1500-7 800 high Not Available [facility] [address], [address], 07/01/2023 03:27:25 06/30/19 24 07/01/2023 CBC (INCL UDES DIFF/ PLT) absolute band neutrophils 426 cells /uL 0-750 normal Not Available [facility] [address], [address], 07/01/2023 03:27:25 06/30/19 24 07/01/2023 CBC (INCL UDES DIFF/ PLT) absolute metamyelocyt es 284 cells /uL 0 high Not Available [facility] [address], [address], 07/01/2023 03:27:25 06/30/19 24 07/01/2023 CBC (INCL UDES DIFF/ PLT) absolute myelocytes 284 cells /uL 0 high Not Available [facility] [address], [address], 07/01/2023 03:27:25 06/30/19 24 07/01/2023 CBC (INCL UDES DIFF/ PLT) absolute lymphocytes 1704 cells /uL 850-39 00 normal Not Available [address], [address], 07/01/2023 03:27:25 06/30/19 24 07/01/2023 CBC (INCL UDES DIFF/ PLT) absolute monocytes 568 cells /uL 200-95 0 normal Not Available [facility] [address], [address], 07/01/2023 03:27:25 06/30/19 24 07/01/2023 CBC (INCL UDES DIFF/ PLT) absolute eosinophils 710 cells /uL 15-500 high Not Available [address], [address], 07/01/2023 03:27:25 06/30/19 24 07/01/2023 CBC (INCL UDES DIFF/ PLT) absolute basophils 284 cells /uL 0-200 high Not Available [facility] [place] [address] [place], [address], 07/01/2023 03:27:25 06/30/19 24 07/01/2023 CBC (INCL UDES DIFF/ PLT) neutrophils 70 % normal Not Available [facility] [place] [place] [address] [place], [address], 07/01/2023 03:27:25 06/30/19 24 07/01/2023 CBC (INCL UDES DIFF/ PLT) band neutrophils 3 % normal Not Available [facility] [address] [address] [place], [address], 07/01/2023 03:27:25 06/30/19 24 07/01/2023 CBC (INCL UDES DIFF/ PLT) metamyelocyt es 2 % high Not Available [address], [address], 07/01/2023 03:27:25 06/30/19 24 07/01/2023 CBC (INCL UDES DIFF/ PLT) myelocytes 2 % high Not Available [facility] [address], [address], 07/01/2023 03:27:25 06/30/19 24 07/01/2023 CBC (INCL UDES DIFF/ PLT) lymphocytes 12 % normal Not Available [address], [address], 07/01/2023 03:27:25 06/30/19 24 07/01/2023 CBC (INCL UDES DIFF/ PLT) monocytes 4 % normal Not Available [address], [address], 07/01/2023 03:27:25 06/30/19 24 07/01/2023 CBC (INCL UDES DIFF/ PLT) eosinophils 5 % normal Not Available [address], [address], 07/01/2023 03:27:25 06/30/19 24 07/01/2023 CBC (INCL UDES DIFF/ PLT) basophils 2 % normal Not Available [address], [address], 07/01/2023 03:27:25 06/30/19 24 07/01/2023 CBC (INCL UDES DIFF/ PLT) comment(s) The smear has been manucristina bush wed and the brian conner al has been repor casper. Not Available [address], [address], 07/01/2023 03:27:25 Result Notes None recorded. Problems Name Problem SNOMED Code Status Onset Date Resolution Date Notes Provider Name and Address Organization Details Recorded Time Vitamin D deficiency 80297961 Active 2022 Anupama Santos MD [address], [place] [address], [place], [address], [facility] [employer] 3 10:15:55 Leukocytosis 868861965 Active 2022 Anupama Santos MD [address] [facility] [facility], [place] [address], [place], [address], [employer] 3 08:36:40 Fatigue 58431018 Active [address] [facility] [address] [facility], [place] [address], [place], [address], [employer] 4 12:02:18 Chronic cough 91151546 Active [address] [facility], [place] [address], [place], [address], [employer] 4 12:12:00 Problem Notes None recorded. Procedures Surgical History Date Name Laterality Status Provider Name and Address Organization Details Recorded Time vasectomy completed Not Available [facility] 0 07/24/2022 01:24:12 Imaging Results None recorded. [...] % 98 % 80 /min 97.8 [degF] 30647.8 1 g 118 mm[Hg] 78 mm[Hg] Not Available [facility] 3 01:24:44 Date Recorded Body height Body mass index (BMI) Body weight Body temperature Heart rate Oxygen saturation Oxygen saturation in Arterial blood by Pulse oximetry Systolic blood pressure Diastolic blood pressure Provider Name and Address Organization Details Last Updated DateTime 3 182.88 cm 28.8 kg/m2 67169.5 8 g 97.2 [degF] 76 /min 98 % 98 % 136 mm[Hg] 80 mm[Hg] Abdullahi Ramírez RN [place] - [facility] 3 10:06:58 Date Recorded Body weight Body temperature Heart rate Oxygen saturation Oxygen saturation in Arterial blood by Pulse oximetry Systolic blood pressure Diastolic blood pressure Provider Name and Address [id number]|2024-10-07 08:59:00|2024-10-07 08:59:00|XMS_ITS|ROBERTG VIOLET|External Medical Summaries|[id number]|" Clinical Summary Created on: October 07, 2024 Eb Poole : 12/03/1965 Sex: Male Author Organization [facility] Address [address] [place] [address] Care Team Providers Care Receivable Manager Name Role Phone Deonna Nova MD Primary Care Provider [phone] Allergies No known active allergies Medications Eliquis 5 mg tablet Take 5 mg by mouth 2 times daily. 01/17/2022 Active lisinopriL (PRINIVIL) 5 mg tablet Take 5 mg by mouth daily. 01/25/2022 Active simvastatin (ZOCOR) 20 mg tablet 12/19/2021 Active Active Problems Problem Noted Date Diagnosed Date Secondary hypercoagulable state 02/26/2022 Social History Tobacco Use Types Packs/Day Years Used Date Smoking Tobacco: Never Smokeless Tobacco: Never Tobacco Cessation:Counseling Given: Not Answered Sex and Gender Information Value Date Recorded Sex Assigned at Not on file Legal Sex Male 4:10 PM CDT Gender Identity Not on file Sexual Orientation Not on file Last Filed Vital Signs Vital Sign Reading Time Taken Comments Blood Pressure 118/80 04/04/2022 9:14 AM CONTRACTS MANAGER Pulse 64 04/04/2022 9:14 AM CONTRACTS MANAGER Temperature 36.6 C (97.9 F) 04/04/2022 9:14 AM CONTRACTS MANAGER Respiratory Rate 20 04/04/2022 9:14 AM CONTRACTS MANAGER Oxygen Saturation 99% 04/04/2022 9:14 AM CONTRACTS MANAGER Inhaled Oxygen Concentration - - Weight 98.4 kg (216 lb 14.4 oz) 04/04/2022 9:14 AM CONTRACTS MANAGER Height 177.8 cm (5' 10 ) 02/26/2022 9:29 AM CDT Body Mass Index 31.12 02/26/2022 9:29 AM CDT Plan of Treatment Health Maintenance Due Date Last Done Comments DTAP/TDAP/TD VACCINES (1 - Tdap) 12/02/1982 COLORECTAL SCREENING 12/02/2008 Colorectal Cancer Screening 12/02/2008 FIT-DNA Q 3 years 12/02/2008 FIT/FOBT Q 1 year 12/02/2008 Flex Sig/CT Colonography Q 5 years 12/02/2008 ZOSTER VACCINE (1 of 2) 12/02/2013 INFLUENZA VACCINE (#1) 2023 02/27/2022 RSV VACCINE (60+ or ) (1 - 1-dose 75+ series) 12/02/2038 HEPATITIS B VACCINES Aged Out No long er eligible based on patient's age [place] [address] [facility] [id number] Care Teams Receivable Manager Relationship Specialty Start Date End Date Deonna Nova MD [address] [place] [address] PCP - General Family Practice 02/26/22 "
--- OUTSIDE RECORDS SUMMARY | 2024-10-07 08:46 | XMS_ITS | Clinical Summary ---
Author Organization [facility] Address [address] [place] [address] Care Team Providers Care Dairy Nutritionist Name Role Phone Unavailable Primary Care Provider [...]
[2024-10-07 08:50] VITALS: BP 150/93; PULSE 75; RESP 17; TEMP 36.4; O2SAT 98
== END 2024-10-07 09:30 | disposition home or self-care (01) ==
PROVIDERS: Emergency Provider Nurse Practitioner; PCP Nurse Practitioner Family
DX: L23.7 Allergic contact dermatitis due to plants, except food (principal); Z86.16 Personal history of COVID-19
CPT/HCPCS: 99213; G0463

== ENCOUNTER 2024-10-25 08:09 | Emergency (ER) | payer OTHER, SELFPAY ==
--- NOTE | 2024-10-25 08:16 | ED_ITS ---
HPI - Skin/Abscess/Foreign Bdy General Chief complaint: Skin/Abscess/Foreign Body Stated complaint: spider bite Time Seen by Provider: 10/25/24 08:13 Source: patient Mode of arrival: ambulatory Limitations: no limitations History of Present Illness HPI narrative: Sunil is a 44-year-old male patient presenting to the clinic today with complaints of a possible spider bite. He reports he 1st noticed the symptoms yesterday morning. Thinks he may have been bitten by a spider while he was sleeping. Has redness, swelling, and blood like blister to the left middle index finger. Blood blister measuring 1 x 1. Area is tender to touch. Area started draining when he came into the clinic Related Data Allergies Allergy/AdvReac Type Severity Reaction Status Date / Time No Known Allergies Allergy Mild Verified 10/25/24 08:18 Review of Systems Review of Systems: Pertinent positives per HPI. Patient denies any fever, chills, headache, visual changes, dizziness, cough, runny nose, sore throat, shortness of breath, chest pain, palpitations, nausea, vomiting, diarrhea, constipation, abdominal pain, or any urinary issues. PMFSH Comments At the time of my signature, I reviewed and agree with the nursing past medical, surgical, social, and family history. There is no relevant family history pertinent to the patient complaint. Exam Narrative: General: Well-developed, well nourished, in no apparent distress Head: Normocephalic, atraumatic. Cardio: Regular rate and rhythm, s1 and s2 normal, no murmur appreciated. Resp: Clear to auscultation bilaterally, no rhonchi, rales, wheezing or rubs. Integumentary: [place], warm, and dry, 1 x 1 cm blood blister to the left mid dorsal index finger with localized redness and swelling, mild erythema, tenderness to palpation, able to flex and extend the finger is limited due to pain and swelling, blister has to abel on top of it that appear to be possibly from a spider. Blister is draining-culture was obtained and sent to the lab. Wound was washed using antiseptic wound wash and triple antibiotic ointment and Band-Aid was applied Course Course Emergency Course: Portions of this record may have been created with voice recognition software. Level of Care: Express Care Visit Vital Signs Vital signs: Vital Signs Temperature 36.2 C L 10/25/24 08:20 Pulse Rate 84 10/25/24 08:20 Respiratory Rate 18 10/25/24 08:20 Blood Pressure 160/90 H 10/25/24 08:20 Pulse Oximetry 100 10/25/24 08:20 Oxygen Delivery Room Air 10/25/24 08:20 Temperature 36.2 C L 10/25/24 08:20 Pulse Rate 84 10/25/24 08:20 Respiratory Rate 18 10/25/24 08:20 Blood Pressure 160/90 H 10/25/24 08:20 Pulse Oximetry 100 10/25/24 08:20 Oxygen Delivery Room Air 10/25/24 08:20 Vital signs reviewed MDM - Skin/Abscess/Foreign Bdy MDM Narrative Medical decision making narrative: At the time of visit patient is resting comfortably on the exam table. Patient appears to be nontoxic. Labs: Wound culture was obtained and sent to the lab Plan: I suspect patient has an infected insect bite to the left index finger. Prescription for clindamycin was sent to the pharmacy. Wound culture was obtained and sent to the lab Supportive measures were discussed with the patient and they voiced understanding discharge instructions and agrees to treatment plan. Return precautions reviewed Differential Diagnosis Differential diagnosis: Likely abscess of skin or subcutaneous tissue, viral ex anthem, dermatophytosis, urticaria, herpes zoster, allergic reaction to drug, cellulitis, eczema, insect bites, impetigo and contact dermatitis Discharge Plan Discharge Clinical Impression: Infected insect bite Qualifiers: Encounter type: initial encounter Qualified Code(s): W57.XXXA - Bitten or stung by nonvenomous insect and other nonvenomous arthropods, initial encounter Patient Disposition: Home Condition: Stable Instructions: Antibiotic Form, Insect Bite or Sting (ED) Additional Instructions: Keep area clean and dry Wash daily with soap and water May apply triple antibiotic ointment to the wound twice daily times 48 hours Increase fluids and stay well hydrated Take Tylenol/Motrin as needed for pain Rest and elevate Take clindamycin as prescribed Follow-up with your primary care doctor in 2-3 days for wound check Go to the emergency room if symptoms worsen-increase in redness, increase in pain, increase in swelling, fever not controlled by Tylenol Motrin, or streaking Patient Language: Hungarian Prescriptions: New clindamycin HCl [Cleocin HCl] 300 mg capsule 300 mg PO Q8H 7 Days Qty: 21 0RF No Action triamcinolone acetonide 0.1 % cream 1 applic topical BID 7 Days Qty: 30 0RF Follow-up/Referrals: Woodrow,Deonna Heredia NP [Primary Care Provider] - Time of Disposition: 08:39 Quality NIHSS Nursing Documentation ED NIHSS nursing documentation: reviewed/agree
[2024-10-25 08:20] VITALS: BP 160/90; PULSE 84; RESP 18; TEMP 36.2; O2SAT 100
--- OUTSIDE RECORDS SUMMARY | 2024-10-25 08:21 | XMS_ITS | Data Portability ---
Author Organization [place] - [facility] [employer], Main Office Address [address] [place] [address] Assessment No assessment recorded. Plan of Treatment Reminders Order Date Submit Date Provider Last Modified By Organization Details Last Modified Time Details Appointments Physical/ Annual Wellness 30 2024 09:30A Steve Troy NP Not available Not available Not available Lab vitamin D, 25-hydrox y, total, serum 2023 024 [email or web address] [facility], [address], [place], [address], 05/10/2024 08:15:22 lipid panel, serum 2023 024 [email or web address] [facility], [address], [place], [address], 05/16/2024 08:19:19 CBC w/ auto diff 2023 024 [email or web address] [facility], [address], [place], [address], 05/10/2024 08:15:22 BMP, serum or plasma 2023 024 [email or web address] [facility], [address], [place], [address], 05/16/2024 08:19:19 TSH, serum or plasma 2023 024 [facility], [address], [place], [address], 05/10/2024 08:15:22 testoster one, free + total, serum 2023 024 [email or web address] [facility], [address], [address], [place], [address], 05/10/2024 08:15:22 iron + TIBC + ferritin, serum 2023 024 77 [facility], [address], [address], [place], [address], 05/10/2024 08:15:22 vitamin B12 + folate, serum or blood 2023 024 [facility], [address], [address], [place], [address], 05/10/2024 08:15:23 vitamin D, 25-hydrox y, total, [...] Timothy Shaw MD, [address], [place], [address], 06/01/2024 08:52:15 Procedures None recorded. Surgeries None recorded. Imaging None recorded. Medication Orders None recorded. Patient TargetsNo targets recorded. 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 See Note 1 Note 1 For addit ional infor melissa rob refer to http: //lenard Tran stDia gnost ics.c om/fa q/FAQ 199 (This link is being provi ded for infor marlon brizuela/ car schuster purpo ses only. ) Not Available [facility] [address] [place], [address], 05/01/2022 06:50:01 04/30/20 22 05/01/2022 BASIC METAB OLIC PANEL glucose 82 mg/dL 65-99 normal Fasti ng refer ence inter deepali Not Available [facility] [address] [place], [address], 05/01/2022 06:50:00 04/30/20 22 05/01/2022 BASIC METAB OLIC PANEL urea nitrogen (BUN) 15 mg/dL 7-25 normal Not Available [address] [address] [place], [address], 05/01/2022 06:50:00 04/30/20 22 05/01/2022 BASIC METAB OLIC PANEL creatinine 1.03 mg/dL 0.60-1 .29 normal Not Available [address] [place], [address], 05/01/2022 06:50:00 04/30/20 22 05/01/2022 BASIC METAB [...] kdoqi /gfr% 5Fcal culat or Not Available [address] [address] [place], [address], 05/01/2022 06:50:00 04/30/20 22 05/01/2022 BASIC METAB OLIC PANEL BUN/creatini ne ratio not applic able (calc ) 6-22 Not Available [address] [place], [address], 05/01/2022 06:50:00 04/30/20 22 05/01/2022 BASIC METAB OLIC PANEL sodium 138 mmol/ L 135-14 6 normal Not Available [address] [address] [place], [address], 05/01/2022 06:50:00 04/30/20 22 05/01/2022 BASIC METAB OLIC PANEL potassium 5.1 mmol/ L 3.5-5. 3 normal Not Available [address] [address] [place], [address], 05/01/2022 06:50:00 04/30/20 22 05/01/2022 BASIC METAB OLIC PANEL chloride 103 mmol/ L 98-110 normal Not Available [address], [address], 05/01/2022 06:50:00 04/30/20 22 05/01/2022 BASIC METAB OLIC PANEL carbon dioxide 30 mmol/ L 20-32 normal Not Available [address], [address], 05/01/2022 06:50:00 04/30/20 22 05/01/2022 BASIC METAB OLIC PANEL calcium 9.8 mg/dL 8.6-10 .3 normal Not Available [address], [address], 05/01/2022 06:50:00 04/30/20 22 05/01/2022 LIPID PANEL , STAND DAVID cholesterol, total 127 mg/dL <200 normal Not Available [address], [address], 05/01/2022 06:50:00 04/30/20 22 05/01/2022 LIPID PANEL , STAND DAVID HDL cholesterol 31 mg/dL > or = 40 low Not Available [address], [address], 05/01/2022 06:50:00 04/30/20 22 05/01/2022 LIPID PANEL , STAND DAVID triglyceride s 115 mg/dL <150 normal Not Available [address], [address], 05/01/2022 06:50:00 04/30/2005/01/2022 LIPID PANEL , STAND [...] 9): 2061- 2068 (http ://ed ucati on.Qu leonardStellinc Technology AB. com/f aq/FA Q164) Not Available [facility] [address] [address] [address] [place], [address], 05/01/2022 06:50:00 04/30/20 22 05/01/2022 LIPID PANEL , STAND DAVID chol/HDLC ratio 4.1 (calc ) <5.0 normal Not Available [address] [address] [address], [place], [address], 05/01/2022 06:50:00 04/30/20 22 05/01/2022 LIPID PANEL , STAND DAVID non HDL cholesterol 96 mg/dL _(leola c) <130 normal For patie nts with diabe christina plus 1 major ASCVD risk facto r, treat ing to a non-H DL-C goal of <100 mg/dL (LDL- C of <70 mg/dL ) is lauren gross optio n. Not Available [facility] [address] [address] [place], [address], 05/01/2022 06:50:00 05/08/20 23 05/09/2023 LIPID PANEL , STAND DAVID cholesterol, total 105 mg/dL <200 normal Not Available [facility] [address] [address] [place], [address], 05/09/2023 09:28:21 05/08/20 23 05/09/2023 LIPID PANEL , STAND DAVID HDL cholesterol 32 mg/dL > or = 40 low Not Available [facility] [address] [address] [place], [address], 05/09/2023 09:28:21 05/08/20 23 05/09/2023 LIPID PANEL , STAND DAVID triglyceride s 147 mg/dL <150 normal Not Available [facility] [address] [place] [address], [address], 05/09/2023 09:28:21 05/08/20 23 05/09/2023 LIPID PANEL [...] 9): 2061- 2068 (http ://ed ucati on.Qu estStellinc Technology AB. [employer]/f aq/FA Q164) Not Available [address] [address] [place], [address], 05/09/2023 09:28:21 05/08/20 23 05/09/2023 LIPID PANEL , STAND DAVID chol/HDLC ratio 3.3 (calc ) <5.0 normal Not Available [facility] [address] [place], [address], 05/09/2023 09:28:21 05/08/20 23 05/09/2023 LIPID PANEL , STAND DAVID non HDL cholesterol 73 mg/dL _(leola c) <130 normal For patie nts with diabe christina plus 1 major ASCVD risk facto r, treat ing to a non-H DL-C goal of <100 mg/dL (LDL- C of <70 mg/dL ) is consi dered a thera peuti c optio n. Not Available [facility] [address] [place], [address], 05/09/2023 09:28:21 05/08/20 23 05/09/2023 BASIC METAB OLIC PANEL glucose 87 mg/dL 65-99 normal Fasti ng refer ence inter deepali Not Available [address] [address] [place], [address], 05/09/2023 09:28:22 05/08/20 23 05/09/2023 BASIC METAB OLIC PANEL urea nitrogen (BUN) 11 mg/dL 7-25 normal Not Available [address], [address], 05/09/2023 09:28:22 05/08/20 23 05/09/2023 BASIC METAB OLIC PANEL creatinine 0.97 mg/dL 0.60-1 .29 normal Not Available [address], [address], 05/09/2023 09:28:22 05/08/20 23 05/09/2023 BASIC METAB OLIC PANEL eGFR 99 mL/mi n/1.7 3m2 > or = 60 normal Not Available [address], [address], 05/09/2023 09:28:22 05/08/20 23 05/09/2023 BASIC METAB OLIC PANEL BUN/creatini ne ratio SEE NOTE: (calc ) 6-22 Not Repor casper: BUN and Creat inine are withi n refer ence range . Not Available [address], [address], 05/09/2023 09:28:22 05/08/20 23 05/09/2023 BASIC METAB OLIC PANEL sodium 138 mmol/ L 135-14 6 normal Not Available [address] [address] [place], [address], 05/09/2023 09:28:22 05/08/20 23 05/09/2023 BASIC METAB OLIC PANEL potassium 4.5 mmol/ L 3.5-5. 3 normal Not Available [address], [address], 05/09/2023 09:28:22 05/08/20 23 05/09/2023 BASIC METAB OLIC PANEL chloride 102 mmol/ L 98-110 normal Not Available [address], [address], 05/09/2023 09:28:22 05/08/20 23 05/09/2023 BASIC METAB OLIC PANEL carbon dioxide 30 mmol/ L 20-32 normal Not Available [address], [address], 05/09/2023 09:28:22 05/08/20 23 05/09/2023 BASIC METAB OLIC PANEL calcium 9.2 mg/dL 8.6-10 .3 normal Not Available [address], [address], 05/09/2023 09:28:22 05/08/20 23 05/09/2023 CBC (INCL UDES DIFF/ PLT) white blood cell count 14.0 thous and/u L 3.8-10 .8 high Not Available [address], [address], 05/09/2023 09:28:23 05/08/20 23 05/09/2023 CBC (INCL UDES DIFF/ PLT) red blood cell count 3.58 eduarda on/uL 4.20-5 .80 low Not Available [address], [address], 05/09/2023 09:28:23 05/08/20 23 05/09/2023 CBC (INCL UDES DIFF/ PLT) hemoglobin 11.7 g/dL 13.2-1 7.1 low Not Available [facility] [address], [address], 05/09/2023 09:28:23 05/08/20 23 05/09/2023 CBC (INCL UDES DIFF/ PLT) hematocrit 35.1 % 38.5-5 0.0 low Not Available [address], [address], 05/09/2023 09:28:23 05/08/20 23 05/09/2023 CBC (INCL UDES DIFF/ PLT) MCV 98.0 fL 80.0-1 00.0 normal Not Available [address], [address], 05/09/2023 09:28:23 05/08/2005/09/2023 CBC (INCL UDES DIFF/ PLT) MCH 32.7 pg 27.0-3 3.0 normal Not Available [address], [address], 05/09/2023 09:28:23 05/08/20 23 05/09/2023 CBC (INCL UDES DIFF/ PLT) MCHC 33.3 g/dL 32.0-3 6.0 normal Not Available [address], [address], 05/09/2023 09:28:23 05/08/20 23 05/09/2023 CBC (INCL UDES DIFF/ PLT) RDW 15.9 % 11.0-1 5.0 high Not Available [address], [address], 05/09/2023 09:28:23 05/08/20 23 05/09/2023 CBC (INCL UDES DIFF/ PLT) platelet count 461 thous and/u L 140-40 0 high Not Available [address], [address], 05/09/2023 09:28:23 05/08/20 23 05/09/2023 CBC (INCL UDES DIFF/ PLT) MPV 9.6 fL 7.5-12 .5 normal Not Available [address], [address], 05/09/2023 09:28:23 05/08/20 23 05/09/2023 DIFFBRIAN BACH absolute neutrophils 64594 cells /uL 1500-7 800 high Not Available [address], [address], 05/09/2023 09:28:24 05/08/20 23 05/09/2023 DIFFE ABRIL AL, MIESHAA L absolute metamyelocyt es 294 cells /uL 0 high Not Available [address], [address], 05/09/2023 09:28:24 05/08/20 23 05/09/2023 DIFFE ABRIL ALMIESHAA L absolute myelocytes 140 cells /uL 0 high Not Available [address], [address], 05/09/2023 09:28:24 05/08/20 23 05/09/2023 DIFFPatrick SAMUELS ALMIESHAA L absolute lymphocytes 1008 cells /uL 850-39 00 normal Not Available [address], [address], 05/09/2023 09:28:24 05/08/20 23 05/09/2023 DIFFPatrick SAMUELS ALMIESHAA L absolute monocytes 294 cells /uL 200-95 0 normal Not Available [address], [address], 05/09/2023 09:28:24 05/08/20 23 05/09/2023 DIFFE ABRIL ALMIESHAA L absolute eosinophils 434 cells /uL 15-500 normal Not Available [address], [address], 05/09/2023 09:28:24 05/08/20 23 05/09/2023 DIFFE RENTI AL, MANUA L absolute basophils 434 cells /uL 0-200 high Not Available [facility] [address], [address], 05/09/2023 09:28:24 05/08/20 23 05/09/2023 DIFFE RENTI AL, MANUA L neutrophils 81.4 % normal Not Available [facility] [address], [address], 05/09/2023 09:28:24 05/08/20 23 05/09/2023 DIFFE RENTI AL, MANUA L metamyelocyt es 2.1 % high Not Available [facility] [address], [address], 05/09/2023 09:28:24 05/08/20 23 05/09/2023 DIFFE RENTI AL, MANUA L myelocytes 1.0 % high Not Available [facility] [address], [address], 05/09/2023 09:28:24 05/08/20 23 05/09/2023 DIFFE RENTI AL, MANUA L lymphocytes 7.2 % normal Not Available [facility] [address], [address], 05/09/2023 09:28:24 05/08/20 23 05/09/2023 DIFFE RENTI AL, MANUA L monocytes 2.1 % normal Not Available [facility] [address], [address], 05/09/2023 09:28:24 05/08/20 23 05/09/2023 DIFFE RENTI AL, MANUA L eosinophils 3.1 % normal Not Available [facility] [address], [address], 05/09/2023 09:28:24 05/08/20 23 05/09/2023 DIFFE RENTI AL, BRIAN L basophils 3.1 % normal Not Available [facility] [address] [address] [place], [address], 05/09/2023 09:28:24 05/08/20 23 05/09/2023 DIFFE RENTI ALBRIAN L note Altho ugh an auto mated CBC was order ed, our instr ument ation detec casper an abnor malit y on your patie nt's speci men requi ring us to perfo rm a brian l revie w. Not Available [facility] [address] [address] [place], [address], 05/09/2023 09:28:24 05/08/2005/09/2023 VITAM IN D,25- [place],TO [...] /MS is recom azar d: order code 77051 (timothy ents >2yrs ). See Note 1 Note 1 For addit ional infor melissa rob refer to http: //lenard pringle.Que stDia gnost ics.c om/fa q/FAQ 199 (This link is being provi ded for infor marlon brizuela/ car spiveyo ses only. ) Not Available [facility] [address] [address] , [place], [address], 05/09/2023 09:28:25 06/30/19 24 07/01/2023 CBC (INCL UDES DIFF/ PLT) white blood cell count 14.2 thous and/u L 3.8-10 .8 high Not Available [facility] [address], [address], 07/01/2023 03:27:25 06/30/19 24 07/01/2023 CBC (INCL UDES DIFF/ PLT) red blood cell count 3.72 eduarda on/uL 4.20-5 .80 low Not Available [facility] [address], [address], 07/01/2023 03:27:25 06/30/19 24 07/01/2023 CBC (INCL UDES DIFF/ PLT) hemoglobin 11.7 g/dL 13.2-1 7.1 low Not Available [facility] [address], [address], 07/01/2023 03:27:25 06/30/19 24 07/01/2023 CBC (INCL UDES DIFF/ PLT) hematocrit 36.3 % 38.5-5 0.0 low Not Available [facility] [address], [address], 07/01/2023 03:27:25 06/30/19 24 07/01/2023 CBC (INCL UDES DIFF/ PLT) MCV 97.6 fL 80.0-1 00.0 normal Not Available [facility] [address], [address], 07/01/2023 03:27:25 06/30/19 24 07/01/2023 CBC (INCL UDES DIFF/ PLT) MCH 31.5 pg 27.0-3 3.0 normal Not Available [facility] [address], [address], 07/01/2023 03:27:25 06/30/19 24 07/01/2023 CBC (INCL UDES DIFF/ PLT) MCHC 32.2 g/dL 32.0-3 6.0 normal Not Available [facility] [address] [place], [address], 07/01/2023 03:27:25 06/30/19 24 07/01/2023 CBC (INCL UDES DIFF/ PLT) RDW 16.6 % 11.0-1 5.0 high Not Available [address], [address], 07/01/2023 03:27:25 06/30/19 24 07/01/2023 CBC (INCL UDES DIFF/ PLT) platelet count 501 thous and/u L 140-40 0 high Not Available [facility] [address], [address], 07/01/2023 03:27:25 06/30/19 24 07/01/2023 CBC (INCL UDES DIFF/ PLT) MPV 9.8 fL 7.5-12 .5 normal Not Available [address], [address], 07/01/2023 03:27:25 06/30/19 24 07/01/2023 CBC (INCL UDES DIFF/ PLT) absolute neutrophils 9940 cells /uL 1500-7 800 high Not Available [facility] [address], [address], 07/01/2023 03:27:25 06/30/19 24 07/01/2023 CBC (INCL UDES DIFF/ PLT) absolute band neutrophils 426 cells /uL 0-750 normal Not Available [facility] [address], [address], 07/01/2023 03:27:25 06/30/19 24 07/01/2023 CBC (INCL UDES DIFF/ PLT) absolute metamyelocyt es 284 cells /uL 0 high Not Available [facility] [address], [address], 07/01/2023 03:27:25 06/30/19 24 07/01/2023 CBC (INCL UDES DIFF/ PLT) absolute myelocytes 284 cells /uL 0 high Not Available [facility] [address], [address], 07/01/2023 03:27:25 06/30/19 24 07/01/2023 CBC (INCL UDES DIFF/ PLT) absolute lymphocytes 1704 cells /uL 850-39 00 normal Not Available [address], [address], 07/01/2023 03:27:25 06/30/19 24 07/01/2023 CBC (INCL UDES DIFF/ PLT) absolute monocytes 568 cells /uL 200-95 0 normal Not Available [facility] [address], [address], 07/01/2023 03:27:25 06/30/19 24 07/01/2023 CBC (INCL UDES DIFF/ PLT) absolute eosinophils 710 cells /uL 15-500 high Not Available [address], [address], 07/01/2023 03:27:25 06/30/19 24 07/01/2023 CBC (INCL UDES DIFF/ PLT) absolute basophils 284 cells /uL 0-200 high Not Available [facility] [address] [address] [place], [address], 07/01/2023 03:27:25 06/30/19 24 07/01/2023 CBC (INCL UDES DIFF/ PLT) neutrophils 70 % normal Not Available [address], [address], 07/01/2023 03:27:25 06/30/19 24 07/01/2023 CBC (INCL UDES DIFF/ PLT) band neutrophils 3 % normal Not Available [facility] [address] [address] [place], [address], 07/01/2023 03:27:25 06/30/19 24 07/01/2023 CBC (INCL UDES DIFF/ PLT) metamyelocyt es 2 % high Not Available [address], [address], 07/01/2023 03:27:25 06/30/19 24 07/01/2023 CBC (INCL UDES DIFF/ PLT) myelocytes 2 % high Not Available [facility] [address], [address], 07/01/2023 03:27:25 06/30/19 24 07/01/2023 CBC (INCL UDES DIFF/ PLT) lymphocytes 12 % normal Not Available [address], [address], 07/01/2023 03:27:25 06/30/19 24 07/01/2023 CBC (INCL UDES DIFF/ PLT) monocytes 4 % normal Not Available [address], [address], 07/01/2023 03:27:25 06/30/19 24 07/01/2023 CBC (INCL UDES DIFF/ PLT) eosinophils 5 % normal Not Available [address], [address], 07/01/2023 03:27:25 06/30/19 24 07/01/2023 CBC (INCL UDES DIFF/ PLT) basophils 2 % normal Not Available [address], [address], 07/01/2023 03:27:25 06/30/19 24 07/01/2023 CBC (INCL UDES DIFF/ PLT) comment(s) The smear has been manua lane bush wed and the manua mariely samuels al has been repor casper. Not Available [facility] [address], [address], 07/01/2023 03:27:25 Result Notes None recorded. Problems Name Problem SNOMED Code Status Onset Date Resolution Date Notes Provider Name and Address Organization Details Recorded Time Vitamin D deficiency 77565034 Active 2022 Anupama Santos MD [address], [place] [address], [place], [address], [facility] [employer] [facility] 3 10:15:55 Leukocytosis 558633616 Active 2022 Anupama Santos MD [address], [place] [address], [place], [address], [facility] [employer] [facility] 3 08:36:40 Fatigue 18305406 Active 2023 FATIMAH Riley [address], [place] [address], [place], [address], [facility] [employer] 4 12:02:18 Chronic cough 89798074 Active 2023 FATIMAH Riley [address] [facility], [place] [address], [place], [address], [facility] [employer] 4 12:12:00 Problem Notes None recorded. Procedures Surgical History Date Name Laterality Status Provider Name and Address Organization Details Recorded Time vasectomy completed Not Available [facility] 07/24/2022 01:24:12 Imaging Results None recorded. [...] % 98 % 80 /min 97.8 [degF] 60388.8 1 g 118 mm[Hg] 78 mm[Hg] Not Available [facility] 3 01:24:44 Date Recorded Body height Body mass index (BMI) Body weight Body temperature Heart rate Oxygen saturation Oxygen saturation in Arterial blood by Pulse oximetry Systolic blood pressure Diastolic blood pressure Provider Name and Address Organization Details Last Updated DateTime 3 182.88 cm 28.8 kg/m2 22592.5 8 g 97.2 [degF] 76 /min 98 % 98 % 136 mm[Hg] 80 mm[Hg] Abdullahi Ramírez RN [facility] 3 10:06:58 Date Recorded Body weight Body temperature Heart rate Oxygen saturation Oxygen saturation in Arterial blood by Pulse oximetry Systolic blood pressure Diastolic blood pressure Provider Name and Address Organization Details Last Updated DateTime 4 958173. 61 g 97.9 [degF] 80 /min 97 % 97 % 184 mm[Hg] 92 mm[Hg] Abdullahi Ramírez RN [facility] 4 11:37:22 Social History Question Answer Notes LastModified by [employer] Details LastModified Time Tobacco Smoking Status Never Smoker Shell Mihir liang [facility] 04/28/2023 09:58:52 What Is Your Level Of Caffeine Consumption? Heavy [id number] Information not available 07/24/2022 What Type Of Diet Are You Following? REGULAR [id number] Information not available 07/24/2022 What Was The Date Of Your Most Recent Tobacco Screening? 04/28/2023 [email or web address] Information not available 04/28/2023 What Is Your Relationship Status? [id number] Information not available 07/24/2022 Sex: Male Functional Status Question Answer Note LastModified by [employer] Details LastModified Time What is your level of alcohol consumption? Moderate [id number] Information not available 07/24/2022 Mental Status None recorded. Family History Relationship Description Onset Age of this Age Resolved Age Notes LastModified by Organization Details LastModified Time Maternal Grandfather Essential hypertension [id number] [id number] Not available 07/24/2022 01:24:14 Maternal Grandfather Coronary artery bypass graft MIGRATION.602 [id number] Not available 07/24/2022 01:24:14 Brother Malignant neoplasm of lung 38 [id number].678 [id number] Not available 07/24/2022 01:24:14 Father Malignant neoplasm of lung MIGRATION.729 [id number] Not available 07/24/2022 01:24:14 Medical History No medical history recorded. Past Encounters Encounter ID Performer Location Encounter Start Date Encounter Closed Date Diagnosis/Indication Diagnosis SNOMED-CT Code Diagnosis ICD10 Code Diagnosis Note [id number] Anupama Santos MD [facility] Primary Care [facility] [address] [place] [address] 04/28/2022 00:00:00 05/22/2022 08:04:44 [id number] Anupama Santos MD [facility] Primary Care [facility] [address] [place] [address] 04/28/2023 09:57:26 04/28/2023 10:44:23 Adult health examination 062844640 Z00.00 Z13.220 Z13.1 [facility] cancer screen age 43PSA age 43 Vitamin D deficiency 347 [address]23 E55.9 [id number] FATIMAH Riley [facility] [address] [place] [address] 05/03/2024 11:28:06 05/03/2024 13:51:54 Adult health examination 849383355 Z00.00 Z13.220 Z13.1 Discussed medication compliance and routine follow up.Discuss ed healthy diet and routine exercise.Casi partidaiewed vaccine records and made recommenda tions as needed.Enc ouraged annual eye and dental exams, as well as twice yearly dental cleanings. Will check screening labs as listed below. Vitamin D deficiency 347 [address]18 E55.9 Fatigue 60851978 R53.83 Will check labs as listed below. Chronic cough 74108937 R 05.3 Patient is going to restart Nexium and take it daily and see if symptoms improve as it has been previously suggested that his chronic cough is GERD related.Di scussed avoiding spicy foods, carbs, and caffeine to help with symptoms of GERD. Difficulty sleeping 3013 [address] Z72.820 Patient declines all treatment/ testing options at this time.Noreen nt is going to take Benadryl like he did previously , will discontinu e Benadryl when stress and life calm-down to determine if this is stress related. Screening for malignant neoplasm of colon 609406724 Z12.11 Will refer to GI as listed below. Health Concerns Section Related Observation LastModified by Organization Detai ls LastModified Time None Recorded Concern Status LastModified by Organization Details LastModified Time None Recorded Advance Directives Directive None Recorded Payers Encounter Date Sequence Insurance Name Policy Number Policy Hurst Covered Member ID Hurst Member ID Guarantor Name 04/28/2023 1 [facility] [employer] [facility] - [place] - DOS PRIOR TO 2024 (PPO) [id number] Tremayne Che Anne [id number] PATEL Sunil Rodríguez 05/03/2024 1 [facility] [employer] - [place]HA - DOS PRIOR TO 2024 (PPO) [id number] Tremayne Che Anne [id number] PATEL Sunil Rodríguez Notes Date Note Type Note Provider Name and Address Organization Details Recorded Time 04/28/2023 text/html Here for wellnes s exam, no questions or concerns Anupama Santos MD [address] [place] [address], [place], [address], [facility] [employer] 04/29/2023 09:03:27 05/03/2024 text/html Patient is a 43 year old male that presents to the office for annual physical. Patient does not take any daily medications. Patient reports chronic dry cough since October/November, went to urgent care and was advised [...] never ending to-do lists. labs-[place] [facility] [id number] within the last 6 years [facility] [address] [facility], [facility] [address], [place], [address], [place] - [facility] 05/04/2024 09:13:21
== END 2024-10-25 08:41 | disposition home or self-care (01) ==
PROVIDERS: Emergency Provider Nurse Practitioner Family; PCP Nurse Practitioner Family
DX: T63.301A Toxic effect of unspecified spider venom, accidental (unintentional), initial encounter (principal)
CPT/HCPCS: 87070; 87075; 87181; 87205; 99213; G0463

== ENCOUNTER 2025-04-18 09:00 | Outpatient (CLI) | payer OTHER, SELFPAY ==
--- NOTE | ~2025-04-18 | US_ITS ---
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 Findings: LIVER: Mild increased echogenicity of the liver. . GALLBLADDER/BILIARY: Minimal sludge within the gallbladder, no wall thickening. CBD 6 mm. [place] sign negative. PANCREAS: Pancreas limited by bowel gas but appears echogenic. SPLEEN: Spleen and 22 cm.. KIDNEYS: Right Kidney: Right kidney 11.5 x 4.5 x 5.8 cm, normal. Left Kidney: Left kidney 11.8 x 6.7 x 5.5 cm, normal. AORTA: Normal caliber aorta. IVC: Unremarkable. FREE FLUID: None. Impression: 1. Mild hepatic steatosis. 2. Splenomegaly. 3. Nonspecific increased echogenicity of the pancreas. MRI suggested to assess Reviewed, dictated and finalized at location P. HATCHERY WORKER Impression: 1. Mild hepatic steatosis. 2. Splenomegaly. 3. Nonspecific increased echogenicity of the pancreas. MRI suggested to assess
== END 2025-04-18 09:01 | disposition home or self-care (01) ==
PROVIDERS: PCP Nurse Practitioner Family; Visit Provider Nurse Practitioner Family
DX: R16.1 Splenomegaly, not elsewhere classified (principal); K76.0 Fatty (change of) liver, not elsewhere classified
CPT/HCPCS: 76700

== ENCOUNTER 2025-05-11 13:32 | Outpatient (CLI) | payer OTHER, SELFPAY ==
--- NOTE | ~2025-05-11 | MR_ITS ---
EXAMINATION: MR MRCP wo/w con/w 3D wo ind DATE: 05/11/2025 15:05 INDICATION: Abnormal finding on imaging TECHNIQUE: Magnetic resonance imaging (MRI) of the abdomen was performed without and with 20 mL Multihance intravenous contrast. Sequences included coronal T2- weighted SS-FSE, coronal T2-weighted FS SS-FSE, coronal T2-weighted FS FIESTA, axial T2-weighted FS FIESTA, axial T2-weighted FIESTA, sagittal T2-weighted SS- FSE, axial T1-weighted dual-echo FSPGR, axial T2-weighted SS-FSE, axial T1- weighted LAVA, axial T2-weighted STIR FSE. Thick-slab T2-weighted FRFSE-XL images were obtained for magnetic resonance cholangiopancreatography (MRCP). Rotating maximum intensity projection 3-D reconstructions of the volumetric data were created by the technologist. Postcontrast sequences included a time course of axial T1-weighted LAVA. COMPARISON: Ultrasound dated 04/18/2025 FINDINGS: ABDOMEN MRI: Heart size is normal. No pericardial or pleural effusion. 8 mm T2 hyperintense nonenhancing cyst along the cephalad margin of the left hepatic lobe. Pancreas, bilateral adrenal glands and kidneys are normal. Several low signal intensity gallstones in the otherwise normal-appearing gallbladder the largest at the neck measuring 3.5 cm. No gallbladder wall thickening or pericholecystic edema to suggest acute cholecystitis. Marked splenomegaly measuring 23 cm and maximal length. The splenic, superior mesenteric and portal veins are patent with main portal vein dilated to 1.8 cm in maximal diameter. No evident portosystemic collaterals. Visualized portions of bowels including the appendix are normal. No pathologically enlarged abdominal or upper pelvic lymphadenopathy. Mild lumbar and lower thoracic spondylosis with normal bone marrow signal throughout. ABDOMEN MRCP: The common hepatic and common bile ducts are normal in caliber measuring up to 4-5 mm in maximal diameters tapering distally with no evident choledocholithiasis. No intrahepatic biliary ductal dilation. IMPRESSION: 1. Cholelithiasis without findings of acute cholecystitis or biliary obstruction. 2. Marked nonspecific splenomegaly without discrete splenic lesions which is of indeterminate etiology with spleen measuring 23 cm in length. Reviewed, dictated and finalized at location A. STRIPPER IMPRESSION: 1. Cholelithiasis without findings of acute cholecystitis or biliary obstructio n. 2. Marked nonspecific splenomegaly without discrete splenic lesions which is of indeterminate etiology with spleen measuring 23 cm in length.
== END 2025-05-11 13:33 | disposition home or self-care (01) ==
PROVIDERS: PCP Nurse Practitioner Family; Visit Provider Nurse Practitioner Family
DX: K80.20 Calculus of gallbladder without cholecystitis without obstruction (principal); R16.1 Splenomegaly, not elsewhere classified
CPT/HCPCS: 74183; 76376; A9577